=== PATIENT | female | born 1995 | race Caucasian/White ===

== ENCOUNTER 2016-04-17 20:30 | Emergency (ER) | payer OTHER ==
--- NOTE | 2016-04-17 22:43 | DIAGNOSTIC IMAGING REPORT ---
PROCEDURE: CT ABD/PELVIS WITH CONTRAST INDICATION: ABDOMINAL PAIN TECHNIQUE: of Isovue 300 were injected intravenously and axial images were obtained of the entire abdomen and pelvis with sagittal and coronal reformations. COMPARISON: None. FINDINGS: ABDOMEN: Gallbladder, liver, pancreas, kidneys, and aorta are normal. Mild chronic splenomegaly (14 cm). Bowel pattern is normal, including appendix. PELVIS: Uterus and adnexal structures are normal. No evidence of free fluid. IMPRESSION: 1. Mild splenomegaly (14 cm). (Chronic). 2. Otherwise negative CT abdomen and pelvis. 3. Findings discussed with Dr. Han. All CT scans at this facility use dose modulation, iterative reconstruction, and/or weight-based dosing when appropriate to reduce radiation dose to as low as reasonably achievable.
--- NOTE | 2016-04-17 22:55 | ED NURSING NOTES ---
Clinical Report - Nurses [facility] [address] [place] [address] 04/17/2016 20:32 Patient: ANDREWS ALMONTE TRIAGE Triage time 21:03. Acuity: LEVEL 3. Chief Complaint: ABDOMINAL PAIN and NAUSEA. Alert. No acute distress. --21: Loree Gr R.N. 21:02 04/17/16. BP: 133/50. HR: 102. RR: 16 (regular and unlabored). O2 saturation: 98% on room air. Temp: 98.2 F (oral). Doshi-Bae pain scale: 4/10. --21: Loree Gr R.N. Weight: 102.5 kg stated. Height/Length: 66 inches Per Patient. BMI: 36.5. Growth Chart Percentile: Weight: 98.8%. Height/Length: 74.7%. --21: Loree Gr R.N. Medications Implanon. --21: Loree Gr R.N. Allergies Naproxen. (sob) --21: Loree Gr R.N. History Arrived by private vehicle. Historian: patient. Unaccompanied. Primary physician (Frantz ([facility])). ( was seen at the [facility], told to come to ED for worsening pain.). This started today. Onset. (at about 1600). 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 PAST MEDICAL HX: Immunizations: status is unknown. Last normal menstrual period unknown. Uses depo implants. SOCIAL HX: Heavy tobacco smoker (cigarette)- less than 1 pack per day. Occasional alcohol use. History of drug use: marijuana. NUTRITIONAL RISK ASSESSMENT: The nutritional risk assessment revealed no deficiencies. FUNCTIONAL ASSESSMENT: Functional assessment: no impairments noted. --21: Loree Gr R.N. PROBLEMS: Ureterolithiasis. Asthma. --21: Loree Gr R.N. ADDITIONAL SURGERIES: Lithotripsy. --21:06 Loree Gr R.N. Interventions ID band on patient. To treatment room. --21:08 Loree Gr R.N. PHYSICAL ASSESSMENT Ambulatory to room. Patient gowned. GENERAL / NEURO / PSYCH: Alert. Oriented X 4. Appears in no acute distress. HEENT: Mucous membranes are pink. RESPIRATORY: Respirations not labored. CVS: Capillary refill less than 2 seconds. SKIN: Skin is warm and dry. --21:09 Loree Gr R.N. NURSING PROGRESS NOTES Head of bed elevated. Two patient identifiers checked. Call light placed in reach. Side rails up x 1. Bed placed in lowest position. Brakes of bed on. Patient ready for evaluation- chart flagged. --21:09 Loree Gr R.N. Patient ID band checked for patient name and birthdate: patient confirmed. Instructions provided to collect clean catch urine and patient verbalized understanding. Clean catch urine collected with return of yellow-colored cloudy urine; sample sent to lab. Specimen labeled in the presence of the patient. --21:09 Loree Gr R.N. The initial plan of care for this patient has been created This plan of care was discussed with the patient. --21:10 Loree Gr R.N. 21:15 04/17/2016 Site #1 started via IV in the right antecubital space with an 20g angiocath, with aseptic technique and good blood return; one attempt. Blood drawn: rainbow set. Labeled in the presence of the patient and sent to the lab. Saline lock flushed with 10 mL saline. --21:22 Loree Gr R.N. 21:15 04/17/2016 Started bag #1 1000 mL IV Fluids IV NS (Saline); at 1000 mL/hr over 1 hour(s) via site #1 via IV pump. Allergies verified and confirmed 5 rights. IV patency established. IV site checked: no pain, redness, or swelling. IV flushed thoroughly pre- and post-medication administration. --21:55 Madison Wu R.N. 21:17 04/17/2016 Zofran (Ondansetron HCl) IVP 4 mg given over 1 minute(s) via site #1. Allergies verified and confirmed 5 rights. IV patency established. IV site checked: no pain, redness, or swelling. IV flushed thoroughly pre- and post-medication administration. IVP given by RN. --21:22 Loree Gr R.N. Patient returned from CT by stretcher with tech. --21:58 Madison Wu R.N. 22:45 04/17/16. BP: 113/65. HR: 103. RR: 20. O2 saturation: 97% on room air. Pain level now: 07/22. --22:45 Nena Sultana ( Discussed plan of care with patient. Patient resting and has no complaints at this time.). --22:45 Nena Sultana 22:53 04/17/2016 Dilaudid (HYDROmorphone HCl PF) IVP 0.5 mg given over 1 minute(s) via site #1. Allergies verified, confirmed 5 rights and sedative warning given to the patient. IV patency established. IV site checked: no pain, redness, or swelling. IV flushed thoroughly pre- and post-medication administration. IVP given by RN. --22:53 Nena Sultana 23:15 04/17/2016 IV Fluids IV NS Discontinued: bag #1 completed. Total amount infused: 1000 mL. IV patency established. IV site checked: no pain, redness, or swelling. IV flushed thoroughly. --23:48 Nena Sultana. DISPOSITION / DISCHARGE 22:55 04/17/16. BP: 113/65. HR: 109. RR: 20. O2 saturation: 97% on room air. Pain level now: 05/24. --22:55 Nena Sultana 22:55 04/17/16. Condition at departure: stable. --22:55 Nena Sultana 23:40 04/17/16. BP: 108/51. HR: 100. RR: 20. O2 saturation: 99% on room air. Temp: 98.3 F (oral). Pain level now: 07/22. --23:48 Nena Sultana Condition at departure: stable. No learning barriers present. Discharge instructions provided and reviewed with the patient. Reviewed medication(s) side effects, precautions, dosing and course information. Prescription(s) given to the patient. Patient verbalized understanding. Written instructions provided in [place]. ( Mandatory follow up with PCP in 12-24 hours. Avoid alcohol and fatty or greasy foods. Hydrate and return to ER if symptoms worsen.). The patient was discharged by the physician. She was discharged home and accompanied by plant machinist. She left the Emergency Department ambulatory and via private vehicle. Wine Steward/Stewardess driving. --23:48 Nena Sultana 23:38 04/17/2016 Site #1 removed upon discharge. Catheter intact. Bandaid applied. --23:48 Nena Sultana. Locked/Released at 04/17/2016 23:49 by Nena Sultana,
--- NOTE | 2016-04-17 22:55 | ED NURSING NOTES ---
Clinical Report - Nurses [facility] [address] [place] [address] 04/17/2016 20:32 Patient: ANDREWS ALMONTE TRIAGE Triage time 21:03. Acuity: LEVEL 3. Chief Complaint: ABDOMINAL PAIN and NAUSEA. Alert. No acute distress. --21: Loree Gr R.N. 21:02 04/17/16. BP: 133/50. HR: 102. RR: 16 (regular and unlabored). O2 saturation: 98% on room air. Temp: 98.2 F (oral). Doshi-Bae pain scale: 4/10. --21: Loree Gr R.N. Weight: 102.5 kg stated. Height/Length: 66 inches Per Patient. BMI: 36.5. Growth Chart Percentile: Weight: 98.8%. Height/Length: 74.7%. --21: Loree Gr R.N. Medications Implanon. --21: Loree Gr R.N. Allergies Naproxen. (sob) --21: Loree Gr R.N. History Arrived by private vehicle. Historian: patient. Unaccompanied. Primary physician (Frantz ([facility])). ( was seen at the [facility], told to come to ED for worsening pain.). This started today. Onset. (at about 1600). 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 PAST MEDICAL HX: Immunizations: status is unknown. Last normal menstrual period unknown. Uses depo implants. SOCIAL HX: Heavy tobacco smoker (cigarette)- less than 1 pack per day. Occasional alcohol use. History of drug use: marijuana. NUTRITIONAL RISK ASSESSMENT: The nutritional risk assessment revealed no deficiencies. FUNCTIONAL ASSESSMENT: Functional assessment: no impairments noted. --21: Loree Gr R.N. PROBLEMS: Ureterolithiasis. Asthma. --21: Loree Gr R.N. ADDITIONAL SURGERIES: Lithotripsy. --21:06 Loree Gr R.N. Interventions ID band on patient. To treatment room. --21:08 Loree Gr R.N. PHYSICAL ASSESSMENT Ambulatory to room. Patient gowned. GENERAL / NEURO / PSYCH: Alert. Oriented X 4. Appears in no acute distress. HEENT: Mucous membranes are pink. RESPIRATORY: Respirations not labored. CVS: Capillary refill less than 2 seconds. SKIN: Skin is warm and dry. --21:09 Loree Gr R.N. NURSING PROGRESS NOTES Head of bed elevated. Two patient identifiers checked. Call light placed in reach. Side rails up x 1. Bed placed in lowest position. Brakes of bed on. Patient ready for evaluation- chart flagged. --21:09 Loree Gr R.N. Patient ID band checked for patient name and birthdate: patient confirmed. Instructions provided to collect clean catch urine and patient verbalized understanding. Clean catch urine collected with return of yellow-colored cloudy urine; sample sent to lab. Specimen labeled in the presence of the patient. --21:09 Loree Gr R.N. The initial plan of care for this patient has been created This plan of care was discussed with the patient. --21:10 Loree Gr R.N. 21:15 04/17/2016 Site #1 started via IV in the right antecubital space with an 20g angiocath, with aseptic technique and good blood return; one attempt. Blood drawn: rainbow set. Labeled in the presence of the patient and sent to the lab. Saline lock flushed with 10 mL saline. --21:22 Loree Gr R.N. 21:15 04/17/2016 Started bag #1 1000 mL IV Fluids IV NS (Saline); at 1000 mL/hr over 1 hour(s) via site #1 via IV pump. Allergies verified and confirmed 5 rights. IV patency established. IV site checked: no pain, redness, or swelling. IV flushed thoroughly pre- and post-medication administration. --21:55 Madison Wu R.N. 21:17 04/17/2016 Zofran (Ondansetron HCl) IVP 4 mg given over 1 minute(s) via site #1. Allergies verified and confirmed 5 rights. IV patency established. IV site checked: no pain, redness, or swelling. IV flushed thoroughly pre- and post-medication administration. IVP given by RN. --21:22 Loree Gr R.N. Patient returned from CT by stretcher with tech. --21:58 Madison Wu R.N. 22:45 04/17/16. BP: 113/65. HR: 103. RR: 20. O2 saturation: 97% on room air. Pain level now: 07/22. --22:45 Nena Sultana ( Discussed plan of care with patient. Patient resting and has no complaints at this time.). --22:45 Nena Sultana 22:53 04/17/2016 Dilaudid (HYDROmorphone HCl PF) IVP 0.5 mg given over 1 minute(s) via site #1. Allergies verified, confirmed 5 rights and sedative warning given to the patient. IV patency established. IV site checked: no pain, redness, or swelling. IV flushed thoroughly pre- and post-medication administration. IVP given by RN. --22:53 Nena Sultana 23:15 04/17/2016 IV Fluids IV NS Discontinued: bag #1 completed. Total amount infused: 1000 mL. IV patency established. IV site checked: no pain, redness, or swelling. IV flushed thoroughly. --23:48 Nena Sultana. DISPOSITION / DISCHARGE 22:55 04/17/16. BP: 113/65. HR: 109. RR: 20. O2 saturation: 97% on room air. Pain level now: 05/24. --22:55 Nena Sultana 22:55 04/17/16. Condition at departure: stable. --22:55 Nena Sultana 23:40 04/17/16. BP: 108/51. HR: 100. RR: 20. O2 saturation: 99% on room air. Temp: 98.3 F (oral). Pain level now: 07/22. --23:48 Nena Sultana Condition at departure: stable. No learning barriers present. Discharge instructions provided and reviewed with the patient. Reviewed medication(s) side effects, precautions, dosing and course information. Prescription(s) given to the patient. Patient verbalized understanding. Written instructions provided in Niue[place]. ( Mandatory follow up with PCP in 12-24 hours. Avoid alcohol and fatty or greasy foods. Hydrate and return to ER if symptoms worsen.). The patient was discharged by the physician. She was discharged home and accompanied by technologist development. She left the Emergency Department ambulatory and via private vehicle. Petroleum Inspector driving. --23:48 Nena Sultana 23:38 04/17/2016 Site #1 removed upon discharge. Catheter intact. Bandaid applied. --23:48 Nena Sultana. Locked/Released at 04/17/2016 23:49 by Nena Sultana,
--- NOTE | 2016-04-17 22:55 | ED CLINICAL REPORT ---
Clinical Report - Physicians/Mid Levels [facility] [address] [place] [address] 04/17/2016 20:32 Patient: ANDREWS ALMONTE Time Seen: 21:02. Arrived- By private vehicle. Historian- patient. HISTORY OF PRESENT ILLNESS Chief Complaint: ABDOMINAL PAIN. At its maximum, severity described as moderate. When seen in the E.D., severity described as moderate. Modifying factors- worsened by movement. Relieved by rest. This started today about 1600 and is still present. It was gradual in onset and has been waxing/waning. It is described as "pain". No radiation. It is described as located in the right lower quadrant and right pelvis. The patient has had nausea. No vomiting or diarrhea. Similar symptoms previously: Recent medical care: The patient was seen recently by a health care provider (was seen at the [facility], told to come to ED for worsening pain). REVIEW OF SYSTEMS 1. Para 1. Uses depo implants. No constipation, black stools, hematemesis, difficulty with urination or pain with urination. No urinary frequency, fever, sore throat, chest pain or difficulty breathing. The patient has had mild lower back pain. All systems otherwise negative, except as recorded above. PAST HISTORY Primary physician: Dr Landry ([facility]) Problems: Ureterolithiasis. Vomiting. Chemical Exposure, Skin. Back Pain. Asthma. SURGERIES: Lithotripsy. SOCIAL HISTORY Smoker- current status unknown. Occasional alcohol use. History of drug use: marijuana. ADDITIONAL NOTES The nursing notes have been reviewed. PHYSICAL EXAM Vital Signs: 04/17/2016 21:02 BP: 133/50. HR: 102. RR: 16. O2 saturation: 98%. Temp: 98.2 F. Doshi-Bae pain scale: 4/10. Appearance: Alert. Oriented X3. No acute distress. Eyes: Eyes normal inspection. No scleral icterus or pale conjunctivae. ENT: Pharynx normal. No pharyngeal erythema or tonsillar exudate. The mucous membranes are not dry. Neck: Normal inspection. Neck supple. No JVD, carotid bruit or meningeal signs. CVS: Heart sounds normal. Pulses normal. Respiratory: No respiratory distress. Breath sounds normal. No rales, rhonchi or wheezes. Abdomen: Soft. Mild tenderness in the right lower quadrant and lower abdomen. No organomegaly. No mass. No rebound tenderness or guarding. Back: Normal inspection. No CVA tenderness. Skin: No cyanosis. Skin warm and dry. No pallor. Normal skin color. No rash. Normal skin turgor. No diaphoresis. Extremities: Extremities exhibit normal ROM. No lower extremity edema. No calf tenderness. No lower extremity edema. Neuro: Oriented X 3. No motor deficit. LABS, X-RAYS, AND EKG Abdominal CT: Appendix normal. FINDINGS: ABDOMEN: Gallbladder, liver, pancreas, kidneys, and aorta are normal. Mild chronic splenomegaly (14 cm). Bowel pattern is normal, including appendix. PELVIS: Uterus and adnexal structures are normal. No evidence of free fluid. IMPRESSION: 1. Mild splenomegaly (14 cm). (Chronic). 2. Otherwise negative CT abdomen and pelvis. Study type: abdomen and pelvis. The study was independently viewed by me, interpreted by the radiologist and discussed with the radiologist. Laboratory Tests: UA-Culture if indicated: (FRANK: 04/17/2016 21:15) ( MsgRcvd 04/17/2016 21:43) Final results Test Result Flag Units (Reference) URINE COLOR YELLOW URINE APPEARANCE CLOUDY URINE GLUCOSE NEGATIVE (NEGATIVE) URINE BILIRUBIN NEGATIVE (NEGATIVE) URINE KETONE NEGATIVE (NEGATIVE) URINE SPECIFIC GRAVITY 1.025 (1.010-1.030) URINE PH 7.0 (5.0-8.0) URINE PROTEIN NEGATIVE (NEGATIVE) URINE UROBILINOGEN 0.2 EU/dL (0.2-1.0) URINE NITRITE NEGATIVE (NEGATIVE) URINE BLOOD NEGATIVE (NEGATIVE) URINE LEUK ESTERASE NEGATIVE (NEGATIVE) URINE RBC NONE SEEN rbc/hpf (0-1) URINE WBC 1-3 wbc/hpf (0-1) URINE EPITHELIAL CELLS 1-3 EPI/hpf (0-5) URINE BACTERIA TRACE (<1+) (NONE SEEN) URINE COMMENT CULT NOT INDICATED 2+ AMORPHOUSURINE CULTURES ARE SET-UP BASED ON THE FOLLOWING CRITERIA:POSITIVE NITRITEPOSITIVE LEUKOCYTE ESTERASEGREATER THAN 10 WHITE BLOOD CELLSMODERATE (2+) OR GREATER BACTERIA Urine: (FRANK: 04/17/2016 21:15) ( [facility] 04/17/2016 21:29) Final results Test Result Flag Units (Reference) URINE NEGATIVE CBC w Diff: (FRANK: 04/17/2016 21:17) ( [facility] 04/17/2016 21:31) Final results Test Result Flag Units (Reference) WHITE BLOOD COUNT 13.1 H K/uL (4.5-11.5) RED BLOOD COUNT 5.08 M/uL (4.00-5.20) HEMOGLOBIN 14.1 gm/dL (12.0-16.0) HEMATOCRIT 43.1 % (36.0-46.0) MEAN CELL VOLUME 85 fL (80-100) MEAN CORPUSCULAR HGB 28 pg (26-34) MEAN CORPUSCULAR HGB CONC 33 g/dL (31-37) RED CELL DISTRIBUTION WIDTH 13.3 % (11.6-14.8) PLATELET COUNT 293 K/uL (150-400) NEUTROPHIL % 64.8 % (50-75) LYMPH % 24.8 L % (25-40) MONO % 8.5 % (3-14) EOSINOPHIL % 1.3 % (0-4) BASOPHIL % 0.6 % (0-2) PT with INR: (FRANK: 04/17/2016 21:17) ( [facility] 04/17/2016 21:38) Final results Test Result Flag Units (Reference) INR 1.0 (0.8-1.2) Low Intensity Therapy: INR 1.5-2.0 PT range 18.5-23.1Mod.Intensity Therapy: INR 2.0-3.0 PT range 23.1-31.5High Intensity Therapy: INR 2.5-3.5 PT range 27.4-35.5High Intensity Therapy 2: INR 3.0-4.0 PT range 31.5-39.3 Urine Drug Screen: (FRANK: 04/17/2016 21:15) ( [facility] 04/17/2016 21:50) Final results Test Result Flag Units (Reference) AMPHETAMINE/METHAMPHETAMINE NEGATIVE (NEGATIVE) BARBITURATE NEGATIVE (NEGATIVE) BENZODIAZEPINE NEGATIVE (NEGATIVE) CANNABINOID NEGATIVE (NEGATIVE) COCAINE NEGATIVE (NEGATIVE) ECSTASY NEGATIVE (NEGATIVE) METHADONE NEGATIVE (NEGATIVE) OPIATE NEGATIVE (NEGATIVE) The urine drug screen is a qualitative screening test fordrug overdose and abuse. All screen results should beconsidered as presumptive.Drugs screened for are as follows:BenzodiazepinesCocaineAmphetamines/MetamphetaminesTHC (Tetrahydrocannabinol)OpiatesBarbituratesEcstasyMethadonePositive results are unconfirmed. For confirmation, notifythe lab for the specimen to be sent to the reference lab.All confirmations must be performed by a differentmethodology.The ingestion of natural herbal and plant productscontaining Ephedra/Ephedra metabolites can produce in urineone or more substances capable of cross reacting withamphetamine/methamphetamine immunoassays. These testsprovide a preliminary result only. A more specificalternative chemical method must be used to obtain aconfirmed analytical result. CMP: (FRANK: 04/17/2016 21:17) ( MsgRcvd 04/17/2016 21:41) Final results Test Result Flag Units (Reference) GLUCOSE 88 mg/dL (70-110) BUN 16 mg/dL (7-18) CREATININE 0.8 mg/dL (0.6-1.3) Estimated GFR >60 mL/min Estimated GFR- >60 mL/min Note: Persistent reduction over 3 months in eGFR<60 mL/min/1.73 m2 defines CKD. Patients with eGFR values>=60 mL/min/1.73 m2 may also have CKD if evidence ofpersistent proteinuria. Additional information may be foundat www.kidney.org. SODIUM 142 mmol/L (136-145) POTASSIUM 3.8 mmol/L (3.5-5.1) CHLORIDE 104 mmol/L (98-107) CARBON DIOXIDE 29 mmol/L (21-32) CALCIUM 9.2 mg/dL (8.5-10.1) TOTAL PROTEIN 7.7 g/dL (6.4-8.2) ALBUMIN 4.1 g/dL (3.3-5.0) BILIRUBIN, TOTAL 0.3 mg/dL (0.0-1.0) ALKALINE PHOSPHATASE 92 U/L (46-116) AST (SGOT) 14 L U/L (15-37) ALT (SGPT) 41 U/L (12-78) LIPASE 122 U/L (73-393) AMYLASE 45 U/L (25-115) . Pulse Oximetry: 04/17/2016 21:02 O2 saturation: 98%. (FIO2 - room air). Interpretation: normal. PROGRESS AND PROCEDURES Course of Care: Normal Saline 1 liter IVPB given. Zofran 4 mg IVP given. Dilaudid 0.5 mg IVP given. Patient is stable. Physical exam findings are improved. Symptoms much better. Patient/family counseled. Old ED records reviewed. Disposition: Discharged. Condition: stable and improved. CLINICAL IMPRESSION Acute right lower quadrant abdominal pain of unknown cause. Mild splenomegally of unclear significance Consider inflammatory bowel disease. INSTRUCTIONS Rest. Do not work tomorrow or go to school tomorrow. Drink plenty of fluids. No alcohol. Avoid alcohol. Avoid fatty, fried/greasy, lactose-containing (such as milk, cheese and ice cream), salty and spicy foods. Do not smoke. Seek medical help to quit smoking. (MANDATORY RECHECK IN 12 - 24 HOURS UNLESS BETTER). Warnings: Further evaluation is necessary in order to recheck abnormal lab, obtain test results, conduct further tests and assess the possibility of serious illness (You may need a colonoscopy or other procedure if not improving). It is very important to follow up with a physician. SEDATIVE MEDICATION: You were given sedative medication during your visit. Do not drive or operate dangerous machinery. CONTROLLED SUBSTANCE WARNINGS. GENERAL WARNINGS: Return or contact your physician immediately if your condition worsens or changes unexpectedly, if not improving as expected, or if other problems arise. Your Current Medications: CONTINUE TAKING THE FOLLOWING MEDICATIONS: Implanon*. Prescription Medications: Hydrocodone/APAP 5mg / 325mg: take 1-2 orally every 8 hours as needed for pain. Dispense ten (10). No refill. Zofran (orally disintegrating tablets) 4 mg: take 1 orally every 8 hours as needed for nausea and vomiting. Dispense five (5). No refill. Substitution is permissible. OTC Medications: Take acetaminophen (Tylenol, Datril, etc.) according to label instructions. Available over the counter. Follow-up: Follow up with your doctor Primary physician: Dr Landry ([facility]) tomorrow. Follow up with a safety professional- as recommended by your primary care physician. Understanding of the discharge instructions not verbalized by parent. Follow-up with: Rasheed Mora MD, General Surgeon, , [facility], [address] [place] [address] Follow up in about two days. (Electronically signed by Casey Han DO 04/18/2016 15:56)
--- NOTE | 2016-04-17 22:55 | ED ORDER SUMMARY ---
..... Patient: ANDREWS ALMONTE OrderSheet [facility] VisitID: [id number] [address] [place] [address] 20y, F Registration Date/Time: 04/17/2016 ORDER SHEET Weight: 102.5 kg (stated) Allergies: Naproxen GENERAL ORDERS: CBC w Diff Urgent (21:04/17/2016 PHutchinson DO) (Ack 21:28 NHouse ER Tech1) (21:28 NHouse ER Tech1) CMP Urgent (21:04/17/2016 PHutchinson DO) (Ack 21:28 NHouse ER Tech1) (21:28 NHouse ER Tech1) UA-Culture if indicated Urgent (21:04/17/2016 PHutchinson DO) (Ack 21:28 NHouse ER Tech1) (21:28 NHouse ER Tech1) Amylase Urgent (21:04/17/2016 PHutchinson DO) (Ack 21:28 NHouse ER Tech1) (21:28 NHouse ER Tech1) Lipase Urgent (21:04/17/2016 PHutchinson DO) (Ack 21:28 NHouse ER Tech1) (21:28 NHouse ER Tech1) Urine Drug Screen Urgent (21:04/17/2016 PHutchinson DO) (Ack 21:28 NHouse ER Tech1) (21:28 NHouse ER Tech1) Urine Urgent (21:04/17/2016 PHutchinson DO) (Ack 21:28 NHouse ER Tech1) (21:28 NHouse ER Tech1) PT with INR Urgent (21:04/17/2016 PHutchinson DO) (Ack 21:28 NHouse ER Tech1) (21:28 NHouse ER Tech1) NPO (:04/17/2016 PHutchinson DO) (21:22 RCollier R.N.) CT Abd/Pel w Cont (No) (N/A) Urgent (21:12 04/17/2016 PHutchinson DO) (Ack 21:28 NHouse ER Tech1) (21:55 SRoberteodoro R.N.) MEDICATION ORDERS: IV FLUIDS: IV NS : initial bolus 1000 mL (1000 mL/hr), then 500 mL/hr for X2 (NOW) (21:08 04/17/2016 [facility]) (Ack 21:10 RCollier R.N.) (21:55 SRoberts R.N.) Zofran IV 4 mg (NOW) (21:09 04/17/2016 [facility]) (Ack 21:10 RCollier R.N.) (21:22 RCollier R.N.) Dilaudid IV 0.5 mg (HIGH ALERT MEDICATION, NOW) (22:48 04/17/2016 [facility]) (Ack 22:49 HSoule) (22:53 HSoule) ORDER SHEET NOTES: [Electronically signed by Nena Sultana (23:49 04/17/2016)] [Electronically signed by Casey Han DO (15:56 04/18/2016)] [Electronically locked/signed by Nena Sultana (23:49 04/17/2016)]
--- NOTE | 2016-04-17 22:55 | ED ORDER SUMMARY ---
..... Patient: ANDREWS ALMONTE OrderSheet [facility] VisitID: [id number] [address] [place] [address] 20y, F Registration Date/Time: 04/17/2016 ORDER SHEET Weight: 102.5 kg (stated) Allergies: Naproxen GENERAL ORDERS: CBC w Diff Urgent (21:04/17/2016 PHutchinson DO) (Ack 21:28 NHouse ER Tech1) (21:28 NHouse ER Tech1) CMP Urgent (21:04/17/2016 PHutchinson DO) (Ack 21:28 NHouse ER Tech1) (21:28 NHouse ER Tech1) UA-Culture if indicated Urgent (21:04/17/2016 PHutchinson DO) (Ack 21:28 NHouse ER Tech1) (21:28 NHouse ER Tech1) Amylase Urgent (21:04/17/2016 PHutchinson DO) (Ack 21:28 NHouse ER Tech1) (21:28 NHouse ER Tech1) Lipase Urgent (21:04/17/2016 PHutchinson DO) (Ack 21:28 NHouse ER Tech1) (21:28 NHouse ER Tech1) Urine Drug Screen Urgent (21:04/17/2016 PHutchinson DO) (Ack 21:28 NHouse ER Tech1) (21:28 NHouse ER Tech1) Urine Urgent (21:04/17/2016 PHutchinson DO) (Ack 21:28 NHouse ER Tech1) (21:28 NHouse ER Tech1) PT with INR Urgent (21:04/17/2016 PHutchinson DO) (Ack 21:28 NHouse ER Tech1) (21:28 NHouse ER Tech1) NPO (:04/17/2016 PHutchinson DO) (21:22 RCollier R.N.) CT Abd/Pel w Cont (No) (N/A) Urgent (21:12 04/17/2016 PHutchinson DO) (Ack 21:28 NHouse ER Tech1) (21:55 SRoberteodoro R.N.) MEDICATION ORDERS: IV FLUIDS: IV NS : initial bolus 1000 mL (1000 mL/hr), then 500 mL/hr for X2 (NOW) (21:08 04/17/2016 [facility]) (Ack 21:10 RCollier R.N.) (21:55 SRoberts R.N.) Zofran IV 4 mg (NOW) (21:09 04/17/2016 [facility]) (Ack 21:10 RCollier R.N.) (21:22 RCollier R.N.) Dilaudid IV 0.5 mg (HIGH ALERT MEDICATION, NOW) (22:48 04/17/2016 [facility]) (Ack 22:49 HSoule) (22:53 HSoule) ORDER SHEET NOTES: [Electronically signed by Nena Sultana (23:49 04/17/2016)] [Electronically signed by Casey Han DO (15:56 04/18/2016)] [Electronically locked/signed by Nena Sultana (23:49 04/17/2016)]
--- NOTE | 2016-04-18 15:56 | ED DISCHARGE INSTRUCTIONS ---
Patient: ANDREWS ALMONTE General Instructions [facility] VisitID: [id number] [place] [address] 20y, F Registration Date/Time: 04/17/2016 Acute right lower quadrant abdominal pain of unknown cause. Mild splenomegally of unclear significance Consider inflammatory bowel disease. INSTRUCTIONS Rest. Do not work tomorrow or go to school tomorrow. Drink plenty of fluids. No alcohol. Avoid alcohol. Avoid fatty, fried/greasy, lactose-containing (such as milk, cheese and ice cream), salty and spicy foods. Do not smoke. Seek medical help to quit smoking. (MANDATORY RECHECK IN 12 - 24 HOURS UNLESS BETTER). Warnings: Further evaluation is necessary in order to recheck abnormal lab, obtain test results, conduct further tests and assess the possibility of serious illness (You may need a colonoscopy or other procedure if not improving). It is very important to follow up with a physician. SEDATIVE MEDICATION: You were given sedative medication during your visit. Do not drive or operate dangerous machinery. CONTROLLED SUBSTANCE WARNINGS. GENERAL WARNINGS: Return or contact your physician immediately if your condition worsens or changes unexpectedly, if not improving as expected, or if other problems arise. Your Current Medications: CONTINUE TAKING THE FOLLOWING MEDICATIONS: Implanon*. Prescription Medications: Hydrocodone/APAP 5mg / 325mg: take 1-2 orally every 8 hours as needed for pain. Dispense ten (10). No refill. Zofran (orally disintegrating tablets) 4 mg: take 1 orally every 8 hours as needed for nausea and vomiting. Dispense five (5). No refill. Substitution is permissible. OTC Medications: Take acetaminophen (Tylenol, Datril, etc.) according to label instructions. Available over the counter. Follow-up: Follow up with your doctor Primary physician: Dr Landry ([facility]) tomorrow. Follow up with a alliances consultant- as recommended by your primary care physician. Understanding of the discharge instructions not verbalized by parent. Follow-up with: Rasheed Mora MD, General Surgeon, , [facility], [address] [place] [address] Follow up in about two days. ADDITIONAL INFORMATION Abdominal Pain, Unknown Cause (Female) The exact cause of your abdominal (stomach) pain is not certain. This does not mean that this is something to worry about, or the right tests were not done. Everyone likes to know the exact cause of the problem, but sometimes with abdominal pain, there is no clear-cut cause, and this could be a good thing. The good news is that your symptoms can be treated, and you will feel better. Your condition does not seem serious now; however, sometimes the signs of a serious problem may take more time to appear. For this reason,it is important for you to watch for any new symptoms, problems,or worsening of your condition. Over the next few days, the abdominal pain may come and go, or be continuous. Other common symptoms can include nausea and vomiting. Sometimes it can be difficult to tell if you feel nauseous, you may just feel bad and not associate that feeling with nausea. Constipation, diarrhea, and a fever may go along with the pain. The pain may continue even if treated correctly over the following days. Depending on how things go, sometimes the cause can become clear and may require further or different treatment. Additional evaluations, medications, or tests may be needed. Home care Your health care provider may prescribe medications for pain, symptoms, or an infection. Follow the health care provider's instructions for taking these medications. General care Rest until your next exam. No strenuous activities. Try to find positions that ease discomfort. A small pillow placed on the abdomen may help relieve pain. Something warm on your abdomen (such as a heating pad) may help, but be careful not to burn yourself. Diet Do not force yourself to eat, especially if having cramps, vomiting, or diarrhea. Water is important so you do not get dehydrated. Soup may also be good. Sports drinks may also help, especially if they are not too acidic. Make sure you don't drink sugary drinks as this can make things worse. Take liquids in small amounts. Do not guzzle them. Caffeine sometimes makes the pain and cramping worse. Avoid dairy products if you have vomiting or diarrhea. Don't eat large amounts at a time. Wait a few minutes between bites. Eat a diet low in fiber (called a low-residue diet). Foods allowed include refined breads, white rice, fruit and vegetable juices without pulp, tender meats. These foods will pass more easily through the intestine. Avoid whole-grain foods, whole fruits and vegetables, meats, seeds and nuts, fried or fatty foods, dairy, alcohol and spicy foods until your symptoms go away. Follow-up care Follow up with your health care provider as instructed, or if your pain does not begin to improve in the next 24 hours. When to seek medical care Seek prompt medical care if any of the following occur: Pain gets worse or moves to the right lower abdomen New or worsening vomiting or diarrhea Swelling of the abdomen Unable to pass stool for more than three days Fever of 100.4F (38C) or higher, or as directed by your healthcare provider. Blood in vomit or bowel movements (dark red or black color) Jaundice (yellow color of eyes and skin) Weakness, dizziness Chest, arm, back, neck or jaw pain Unexpected vaginal bleeding or missed period Call 911 Call emergency services if any of the following occur: Trouble breathing Confusion Fainting or loss of consciousness Rapid heart rate Seizure Abdominal Pain,Possible Appendicitis [Repeat Exam, Female] Based on your visit today, the exact cause of your abdominal (stomach) pain is not certain. However, you do have some of the early signs of APPENDICITIS. Early in an appendix infection the symptoms can be similar to a simple "stomach ache" or "stomach flu". Therefore, the diagnosis can be hard to make. Since an appendix infection is a serious condition, it is important to know if this is the cause of your symptoms. WAITING for more time to pass and repeating the exam is the best way to find out whether you have appendicitis. Within the next 12-24 hours the cause of your stomach pain should become clear. It is important for you to watch for any new symptoms or worsening of your condition. (See below). Home Care: Rest until your next exam. No strenuous activities. Eat a diet low in fiber (called a low-residue diet). Foods allowed include refined breads, white rice, fruit and vegetable juices without pulp, tender meats. These foods will pass more easily through the intestine. Avoid whole-grain foods, whole fruits and vegetables, meats, seeds and nuts, fried or fatty foods, dairy, alcohol and spicy foods until your symptoms go away. In some cases, you may be asked not to eat or drink anything until you are re-examined. Return for another exam exactly as directed. Follow Up with your doctor or this facility as directed. Get Prompt Medical Attention if any of the following occur: Pain gets worse or moves to the right lower abdomen New or worsening vomiting or diarrhea Swelling of the abdomen Unable to pass stool for more than three days Fever of 100.4F (38C) or higher, or as directed by your healthcare provider Blood in vomit or bowel movements (dark red or black color) Weakness, dizziness or fainting Unexpected vaginal bleeding How To Quit Smoking Smoking is one of the hardest habits to break. About half of all those who have ever smoked have been able to quit, and most of those (about 70%) who still smoke want to quit. Here are some of the best ways to stop smoking. Keep Trying: It takes most smokers about 8 tries before they are finally able to fully quit. So, the more often you try and fail, the better your chance of quitting the next time! So, don't give up! Go Cold Machias: Most ex-smokers quit cold turkey. Trying to cut back gradually doesn't seem to work as well, perhaps because it continues the smoking habit. Also, it is possible to fool yourself by inhaling more while smoking fewer cigarettes. This results in the same amount of nicotine in your body! Get Support: Support programs can make an important difference, especially for the heavy smoker. These groups offer lectures, methods to change your behavior and peer support. Call the free national Quitline for more information. 274-LRQP-AEE (849-963-6044). Low-cost or free programs are offered by many hospitals, local chapters of the [place] [employer] (579-053-5971) and the [place] [employer] (682-897-3621). Support at home is important too. Non-smokers can help by offering praise and encouragement. If the smoker fails to quit, encourage them to try again! Iuyv-Lus-Sllqlls Medicines: For those who can't quit on their own, Nicotine Replacement Therapy (NRT) may make quitting much easier. Certain aids such as the nicotine patch, gum and lozenge are available without a prescription. However, it is best to use these under the guidance of your doctor. The skin patch provides a steady supply of nicotine to the body. Nicotine gum and lozenge gives temporary bursts of low levels of nicotine. Both methods take the edge off the craving for cigarettes. WARNING: If you feel symptoms of nicotine overdose, such as nausea, vomiting, dizziness, weakness, or fast heartbeat, stop using these and see your doctor. Prescription Medicines: After evaluating your smoking patterns and prior attempts at quitting, your doctor may offer a prescription medicine such as bupropion (Zyban, Wellbutrin), varenicline (Chantix, Champix), a niocotine inhaler or nasal spray. Each has its unique advantage and side effects which your doctor can review with you. Health Benefits Of Quitting: The benefits of quitting start right away and keep improving the longer you go without smokin minutes: blood pressure and pulse return to normal 8 hours: oxygen levels return to normal 2 days: ability to smell and taste begins to improve as damaged nerves start to regrow 2-3 weeks: circulation and lung function improves 1-9 months: decreased cough, congestion and shortness of breath; less tired 1 year: risk of heart attack decreases by half 5 years: risk of lung cancer decreases by half; risk of stroke becomes the same as a non-smoker For information about how to quit smoking, visit the following links: [employer] [place] , Clearing the Air, Quit Smoking Today - an online booklet. http://www.smokefree.gov/pubs/clearing_the_air.pdf Smokefree.gov http://smokefree.gov/ QuitNet http://www.quitnet.com/ Hydrocodone Bitartrate, Acetaminophen Oral tablet What is this medicine? ACETAMINOPHEN; HYDROCODONE (a set a KARYNA bryce fen; en droe KOE done) is a pain reliever. It is used to treat mild to moderate pain. How should I use this medicine? Take this medicine by mouth. Swallow it with a full glass of water. Follow the directions on the prescription label. If the medicine upsets your stomach, take the medicine with food or milk. Do not take more than you are told to take. Talk to your pay agent regarding the use of this medicine in children. This medicine is not approved for use in children. What side effects may I notice from receiving this medicine? Side effects that you should report to your doctor or health career resource technician as soon as possible: allergic reactions like skin rash, itching or hives, swelling of the face, lips, or tongue breathing problems confusion feeling faint or lightheaded, falls stomach pain yellowing of the eyes or skin Side effects that usually do not require medical attention (report to your doctor or health career resource technician if they continue or are bothersome): nausea, vomiting stomach upset What may interact with this medicine? alcohol antihistamines isoniazid medicines for depression, anxiety, or psychotic disturbances medicines for sleep muscle relaxants naltrexone narcotic medicines (opiates) for pain phenobarbital ritonavir tramadol What if I miss a dose? If you miss a dose, take it as soon as you can. If it is almost time for your next dose, take only that dose. Do not take double or extra doses. Where should I keep my medicine? Keep out of the reach of children. This medicine can be abused. Keep your medicine in a safe place to protect it from theft. Do not share this medicine with anyone. Selling or giving away this medicine is dangerous and against the law. Store at room temperature between 15 and 30 degrees C (59 and 86 degrees F). Protect from light. Keep container tightly closed. Throw away any unused medicine after the expiration date. Discard unused medicine and used packaging carefully. Pets and children can be harmed if they find used or lost packages. What should I tell my health care provider before I take this medicine? They need to know if you have any of these conditions: brain tumor Crohn's disease, inflammatory bowel disease, or ulcerative colitis drink more than 3 alcohol-containing drinks per day drug abuse or addiction head injury heart or circulation problems kidney disease or problems going to the bathroom liver disease lung disease, asthma, or breathing problems an unusual or allergic reaction to acetaminophen, hydrocodone, other opioid analgesics, other medicines, foods, dyes, or preservatives or trying to get breast-feeding What should I watch for while using this medicine? Tell your doctor or health career resource technician if your pain does not go away, if it gets worse, or if you have new or a different type of pain. You may develop tolerance to the medicine. Tolerance means that you will need a higher dose of the medicine for pain relief. Tolerance is normal and is expected if you take the medicine for a long time. Do not suddenly stop taking your medicine because you may develop a severe reaction. Your body becomes used to the medicine. This does NOT mean you are addicted. Addiction is a behavior related to getting and using a drug for a non-medical reason. If you have pain, you have a medical reason to take pain medicine. Your doctor will tell you how much medicine to take. If your doctor wants you to stop the medicine, the dose will be slowly lowered over time to avoid any side effects. You may get drowsy or dizzy when you first start taking the medicine or change doses. Do not drive, use machinery, or do anything that may be dangerous until you know how the medicine affects you. Stand or sit up slowly. There are different types of narcotic medicines (opiates) for pain. If you take more than one type at the same time, you may have more side effects. Give your health care provider a list of all medicines you use. Your doctor will tell you how much medicine to take. Do not take more medicine than directed. Call emergency for help if you have problems breathing. The medicine will cause constipation. Try to have a bowel movement at least every 2 to 3 days. If you do not have a bowel movement for 3 days, call your doctor or health career resource technician. Too much acetaminophen can be very dangerous. Do not take Tylenol (acetaminophen) or medicines that contain acetaminophen with this medicine. Many non-prescription medicines contain acetaminophen. Always read the labels carefully. Ondansetron Oral disintegrating tablet What is this medicine? ONDANSETRON (on SUDHA se vishal) is used to treat nausea and vomiting caused by chemotherapy. It is also used to prevent or treat nausea and vomiting after surgery. How should I use this medicine? These tablets are made to dissolve in the mouth. Do not try to push the tablet through the foil backing. With dry hands, peel away the foil backing and gently remove the tablet. Place the tablet in the mouth and allow it to dissolve, then swallow. While you may take these tablets with water, it is not necessary to do so. Talk to your pay agent regarding the use of this medicine in children. Special care may be needed. What side effects may I notice from receiving this medicine? Side effects that you should report to your doctor or health career resource technician as soon as possible: allergic reactions like skin rash, itching or hives, swelling of the face, lips, or tongue breathing problems dizziness fast or irregular heartbeat feeling faint or lightheaded, falls fever and chills swelling of the hands and feet tightness in the chest Side effects that usually do not require medical attention (report to your doctor or health career resource technician if they continue or are bothersome): constipation or diarrhea headache What may interact with this medicine? Do not take this medicine with any of the following medications: -apomorphine -cisapride -dofetilide -dronedarone -pimozide -thioridazine -ziprasidone This medicine may also interact with the following medications: -carbamazepine -phenytoin -rifampicin -tramadol -other medicines that prolong the QT interval (cause an abnormal heart rhythm) What if I miss a dose? If you miss a dose, take it as soon as you can. If it is almost time for your next dose, take only that dose. Do not take double or extra doses. Where should I keep my medicine? Keep out of the reach of children. Store between 2 and 30 degrees C (36 and 86 degrees F). Throw away any unused medicine after the expiration date. What should I tell my health care provider before I take this medicine? They need to know if you have any of these conditions: heart disease history of irregular heartbeat liver disease low levels of magnesium or potassium in the blood an unusual or allergic reaction to ondansetron, granisetron, other medicines, foods, dyes, or preservatives or trying to get breast-feeding What should I watch for while using this medicine? Check with your doctor or health career resource technician as soon as you can if you have any sign of an allergic reaction. You have been given the following additional information: Abdominal Pain, Unknown Cause, (Female) Abdominal Pain, Possible Appendicitis (Female) Smoking Cessation Hydrocodone Bitartrate, Acetaminophen Oral tablet Ondansetron Oral disintegrating tablet Rest. Do not work tomorrow or go to school tomorrow. (Electronically signed by Casey Han DO 04/18/2016 15:56)
--- NOTE | 2016-04-18 15:57 | ED MED RECONCILIATION SUMMARY ---
Patient: ANDREWS ALMONTE Medication Reconciliation Report [facility] VisitID: [id number] [address] [place] [address] 20y, F Registration Date/Time: 04/17/2016 Weight: 102.5 kg Height/Length: 66 in. BMI: 36.5 ALLERGIES: Naproxen The patient's Home Medications are listed below: CONTINUE TAKING THE FOLLOWING MEDICATIONS: Implanon The source(s) of the original Home Medication information: Not obtained. The following Medications were given to the patient in the Emergency Department: Zofran [IVP] IVP 4 mg, administered: 04/17/2016 9:17:00 PM IV NS IV Fluids bolus 0, then 1000 mL/hr, administered: 04/17/2016 9:15:00 PM Dilaudid [IVP] IVP 0.5 mg, administered: 04/17/2016 10:53:00 PM The following Medications were prescribed to the patient: Take acetaminophen (Tylenol, Datril, etc.) according to label instructions. Available over the counter. -- Casey Han DO Hydrocodone/APAP 5mg / 325mg: take 1-2 orally every 8 hours as needed for pain. Dispense ten (10). No refill. -- Casey Han DO Zofran (orally disintegrating tablets) 4 mg: take 1 orally every 8 hours as needed for nausea and vomiting. Dispense five (5). No refill. Substitution is permissible. -- Casey Han DO
--- NOTE | 2016-04-18 15:57 | ED MAR SUMMARY ---
..... Medication Administration Record [facility] [address] [place] [address] Patient: ANDREWS ALMONTE Visit ID: [id number] 20y, F Weight: 102.5 kg Height/Length: 66 in BMI: 36.5 ALLERGIES: Naproxen Start 21:15 04/17/2016 Madison Wu R.N., Stop 23:15 04/17/2016 Nena Sultana, Medication Administered: IV NS (SALINE), Dose: IV Fluids over 1 hour(s), Rate: 1000 mL/hr, Dispensed: 1000 mL bag, Site: #1 right AC. Medication Ordered: IV NS : initial bolus 1000 mL (1000 mL/hr), then 500 mL/hr for X2 (NOW). Given 21:17 04/17/2016 Loree Gr R.N. Medication Administered: ZOFRAN [IVP] (ONDANSETRON HCL), Dose: 4 mg IVP over 1 minute(s), Site: #1 right AC. Medication Ordered: Zofran IV 4 mg (NOW). Given 22:53 04/17/2016 Nena Sultana, Medication Administered: DILAUDID [IVP] (HYDROMORPHONE HCL PF), Dose: 0.5 mg IVP over 1 minute(s), Site: #1 right AC. Medication Ordered: Dilaudid IV 0.5 mg (HIGH ALERT MEDICATION, NOW).
--- NOTE | 2016-04-18 15:57 | ED MAR SUMMARY ---
..... Medication Administration Record [facility] [address] [place] [address] Patient: ANDREWS ALMONTE Visit ID: [id number] 20y, F Weight: 102.5 kg Height/Length: 66 in BMI: 36.5 ALLERGIES: Naproxen Start 21:15 04/17/2016 Madison Wu R.N., Stop 23:15 04/17/2016 Nena Sultana, Medication Administered: IV NS (SALINE), Dose: IV Fluids over 1 hour(s), Rate: 1000 mL/hr, Dispensed: 1000 mL bag, Site: #1 right AC. Medication Ordered: IV NS : initial bolus 1000 mL (1000 mL/hr), then 500 mL/hr for X2 (NOW). Given 21:17 04/17/2016 Loree Gr R.N. Medication Administered: ZOFRAN [IVP] (ONDANSETRON HCL), Dose: 4 mg IVP over 1 minute(s), Site: #1 right AC. Medication Ordered: Zofran IV 4 mg (NOW). Given 22:53 04/17/2016 Nena Sultana, Medication Administered: DILAUDID [IVP] (HYDROMORPHONE HCL PF), Dose: 0.5 mg IVP over 1 minute(s), Site: #1 right AC. Medication Ordered: Dilaudid IV 0.5 mg (HIGH ALERT MEDICATION, NOW).
--- NOTE | 2016-04-18 15:57 | ED MED RECONCILIATION SUMMARY ---
Patient: ANDREWS ALMONTE Medication Reconciliation Report [facility] VisitID: [id number] [address] [place] [address] 20y, F Registration Date/Time: 04/17/2016 Weight: 102.5 kg Height/Length: 66 in. BMI: 36.5 ALLERGIES: Naproxen The patient's Home Medications are listed below: CONTINUE TAKING THE FOLLOWING MEDICATIONS: Implanon The source(s) of the original Home Medication information: Not obtained. The following Medications were given to the patient in the Emergency Department: Zofran [IVP] IVP 4 mg, administered: 04/17/2016 9:17:00 PM IV NS IV Fluids bolus 0, then 1000 mL/hr, administered: 04/17/2016 9:15:00 PM Dilaudid [IVP] IVP 0.5 mg, administered: 04/17/2016 10:53:00 PM The following Medications were prescribed to the patient: Take acetaminophen (Tylenol, Datril, etc.) according to label instructions. Available over the counter. -- Casey Han DO Hydrocodone/APAP 5mg / 325mg: take 1-2 orally every 8 hours as needed for pain. Dispense ten (10). No refill. -- Casey Han DO Zofran (orally disintegrating tablets) 4 mg: take 1 orally every 8 hours as needed for nausea and vomiting. Dispense five (5). No refill. Substitution is permissible. -- Casey Han DO
== END 2016-04-17 23:10 | disposition home or self-care (01) ==
LOC: ED SRH 20:30
DX: R10.31 Right lower quadrant pain (principal); R16.1 Splenomegaly, not elsewhere classified
CPT/HCPCS: 90004; 90100; 92235; 92530; 92760; 92761; 92762; 92763; 92764; 92765; 92766; 92767; 93070; 94060; 95059

== ENCOUNTER 2016-05-20 19:14 | Emergency (ER) | payer OTHER ==
--- NOTE | 2016-05-20 20:29 | DIAGNOSTIC IMAGING REPORT ---
PROCEDURE: XR ABD SERIES 2V ABD/1V CHEST INDICATION: ABDOMINAL PAIN TECHNIQUE: AP supine and upright views with PA view chest. COMPARISON: Compared CT abdomen and pelvis on 04/17/2016. FINDINGS: ABDOMEN: Moderate ingested fluid in the stomach. Mild to moderate stool in the sigmoid colon and rectum. No evidence of free air. Soft tissues and osseous structures are normal. CHEST: Lungs are clear. Heart and mediastinum are normal. Thorax is normal. IMPRESSION: 1. Moderate ingested fluid in the stomach. 2. Mild to moderate stool in the sigmoid colon rectum may be within normal limits, although consider obstipation. 3. Otherwise negative acute abdomen series.
--- NOTE | 2016-05-20 21:28 | ED CLINICAL REPORT ---
Clinical Report - Physicians/Mid Levels [facility] [address] [place] [address] 05/20/2016 19:14 Patient: ANDREWS ALMONTE Time Seen: 19:18. Arrived- By private vehicle. Historian- patient. HISTORY OF PRESENT ILLNESS Chief Complaint: ABDOMINAL PAIN. This started today about 45 minutes ago and is still present. At its maximum, severity described as severe. When seen in the E.D., severity described as moderate. It is described as "pain" and it is described as located in the left lower quadrant. No nausea, vomiting or diarrhea. Similar symptoms previously: Several times. REVIEW OF SYSTEMS Last normal menstrual period unknown. No chills, fever, sweats, calf pain or chest pain. No cough, difficulty breathing, pedal edema, palpitations or black stools. No bloody stools, diarrhea, nausea, vomiting or urinary problems. The patient has had constipation. All systems otherwise negative, except as recorded above. PAST HISTORY Problems: Peptic Ulcer Disease. Gastroesophageal Reflux Disease. Ureterolithiasis. Vomiting. Chemical Exposure, Skin. Back Pain. Asthma. Additional Surgeries: Lithotripsy. Medications: Implanon. Allergies: Naproxen. (sob). SOCIAL HISTORY Current every day smoker (cigarette). No alcohol use or drug use. FAMILY HISTORY Denies family medical history. ADDITIONAL NOTES The nursing notes have been reviewed. PHYSICAL EXAM Vital Signs: 05/20/2016 19:23 BP: 146/76. HR: 142. RR: 26. O2 saturation: 99%. Temp: 98.9 F. Pain level now: 10/10. Have been reviewed. Appearance: Alert. Eyes: Pupils equal, round and reactive to light. ENT: Pharynx normal. Neck: Normal inspection. Neck supple. CVS: Normal heart rate and rhythm. Heart sounds normal. Respiratory: No respiratory distress. Breath sounds normal. Abdomen: Soft. Moderate tenderness in the left side of the abdomen. Bowel sounds normal. No organomegaly. No mass. Back: Normal inspection. No CVA tenderness. Skin: Skin warm and dry. Normal skin color. Normal skin turgor. Extremities: Extremities exhibit normal ROM. No lower extremity edema. LABS, X-RAYS, AND EKG KUB: (IMPRESSION: 1. Moderate ingested fluid in the stomach. 2. Mild to moderate stool in the sigmoid colon rectum may be within normal limits, although consider obstipation. 3. Otherwise negative acute abdomen series.). The X-rays were interpreted by the radiologist and contemporaneously by me. Laboratory Tests: UA-Culture if indicated: (FARNK: 05/20/2016 20:13) ( [facility] 05/20/2016 20:57) Final results Test Result Flag Units (Reference) URINE COLOR YELLOW URINE APPEARANCE SL CLOUDY URINE GLUCOSE NEGATIVE (NEGATIVE) URINE BILIRUBIN NEGATIVE (NEGATIVE) URINE KETONE NEGATIVE (NEGATIVE) URINE SPECIFIC GRAVITY 1.015 (1.010-1.030) URINE PH 8.0 (5.0-8.0) URINE PROTEIN NEGATIVE (NEGATIVE) URINE UROBILINOGEN 0.2 EU/dL (0.2-1.0) URINE NITRITE NEGATIVE (NEGATIVE) URINE BLOOD 2+ (NEGATIVE) URINE LEUK ESTERASE NEGATIVE (NEGATIVE) URINE RBC 0-1 rbc/hpf (0-1) URINE WBC 0-1 wbc/hpf (0-1) URINE EPITHELIAL CELLS 0-1 EPI/hpf (0-5) URINE BACTERIA TRACE (<1+) (NONE SEEN) URINE COMMENT CULT NOT INDICATED 2+ AMORPHOUS URATESURINE CULTURES ARE SET-UP BASED ON THE FOLLOWING CRITERIA:POSITIVE NITRITEPOSITIVE LEUKOCYTE ESTERASEGREATER THAN 10 WHITE BLOOD CELLSMODERATE (2+) OR GREATER BACTERIA Urine: (FRANK: 05/20/2016 20:13) ( [facility] 05/20/2016 20:40) Final results Test Result Flag Units (Reference) URINE NEGATIVE CBC w Diff: (FRANK: 05/20/2016 19:35) ( [facility] [place] [address] 05/20/2016 19:50) Final results Test Result Flag Units (Reference) WHITE BLOOD COUNT 12.1 H K/uL (4.5-11.5) RED BLOOD COUNT 5.21 H M/uL (4.00-5.20) HEMOGLOBIN 14.7 gm/dL (12.0-16.0) HEMATOCRIT 43.5 % (36.0-46.0) MEAN CELL VOLUME 84 fL (80-100) MEAN CORPUSCULAR HGB 28 pg (26-34) MEAN CORPUSCULAR HGB CONC 34 g/dL (31-37) RED CELL DISTRIBUTION WIDTH 13.4 % (11.6-14.8) PLATELET COUNT 304 K/uL (150-400) NEUTROPHIL % 59.3 % (50-75) LYMPH % 28.7 % (25-40) MONO % 9.8 % (3-14) EOSINOPHIL % 1.2 % (0-4) BASOPHIL % 1.0 % (0-2) Urine Drug Screen: (FRANK: 05/20/2016 20:13) ( [facility] [place] [address] 05/20/2016 21:25) Final results Test Result Flag Units (Reference) AMPHETAMINE/METHAMPHETAMINE NEGATIVE (NEGATIVE) BARBITURATE NEGATIVE (NEGATIVE) BENZODIAZEPINE NEGATIVE (NEGATIVE) CANNABINOID NEGATIVE (NEGATIVE) COCAINE NEGATIVE (NEGATIVE) ECSTASY NEGATIVE (NEGATIVE) METHADONE NEGATIVE (NEGATIVE) OPIATE NEGATIVE (NEGATIVE) The urine drug screen is a qualitative screening test fordrug overdose and abuse. All screen results should beconsidered as presumptive.Drugs screened for are as follows:BenzodiazepinesCocaineAmphetamines/MetamphetaminesTHC (Tetrahydrocannabinol)OpiatesBarbituratesEcstasyMethadonePositive results are unconfirmed. For confirmation, notifythe lab for the specimen to be sent to the reference lab.All confirmations must be performed by a differentmethodology.The ingestion of natural herbal and plant productscontaining Ephedra/Ephedra metabolites can produce in urineone or more substances capable of cross reacting withamphetamine/methamphetamine immunoassays. These testsprovide a preliminary result only. A more specificalternative chemical method must be used to obtain aconfirmed analytical result. Lipase: (FRANK: 05/20/2016 19:35) ( [facility] [place] [address] 05/20/2016 20:09) Final results Test Result Flag Units (Reference) LIPASE 164 U/L (73-393) AMYLASE 53 U/L (25-115) BETA HCG, QUANTITATIVE <1 mIU/mL REFERENCE RANGE:Adult Males: <2 mIU/mLNon- Females: <6 mIU/mL Females:Approximate Approximate hCGGestational Age Range (mIU/mL) 0-1 week 0-501-2 weeks 40-3002-3 weeks 100-21223-1 weeks 500-24577-6 months 5,000-200,0002-3 months 10,000-100,0002nd trimester 3,000-50,0003rd trimester 1,000-50,000 CHEM 13 PANEL: (FRANK: 05/20/2016 19:35) ( MsgRcvd 05/20/2016 20:02) Final results Test Result Flag Units (Reference) GLUCOSE 116 H mg/dL (70-110) BUN 17 mg/dL (7-18) CREATININE 0.9 mg/dL (0.6-1.3) Estimated GFR >60 mL/min Estimated GFR- >60 mL/min Note: Persistent reduction over 3 months in eGFR<60 mL/min/1.73 m2 defines CKD. Patients with eGFR values>=60 mL/min/1.73 m2 may also have CKD if evidence ofpersistent proteinuria. Additional information may be foundat www.kidney.org. SODIUM 146 H mmol/L (136-145) POTASSIUM 3.8 mmol/L (3.5-5.1) CHLORIDE 109 H mmol/L (98-107) CARBON DIOXIDE 22 mmol/L (21-32) CALCIUM 9.5 mg/dL (8.5-10.1) TOTAL PROTEIN 7.5 g/dL (6.4-8.2) ALBUMIN 4.0 g/dL (3.3-5.0) BILIRUBIN, TOTAL 0.3 mg/dL (0.0-1.0) ALKALINE PHOSPHATASE 102 U/L (46-116) AST (SGOT) 17 U/L (15-37) ALT (SGPT) 35 U/L (12-78) CPK 116 U/L (24-260) MAGNESIUM 1.9 mg/dL (1.8-2.4) TROPONIN I <0.05 L ng/mL (0.00-1.5) TROPONIN REFERENCE RANGE:<0.1 NEGATIVE0.1-1.5 INDETERMINANT>1.5 POSITIVE . PROGRESS AND PROCEDURES Patient/family counseled. Old medical records reviewed. Disposition: Discharged. Condition: stable. CLINICAL IMPRESSION Constipation INSTRUCTIONS Drink plenty of fluids. Warnings: Further evaluation is necessary. GENERAL WARNINGS: Return or contact your physician immediately if your condition worsens or changes unexpectedly, if not improving as expected, or if other problems arise. Prescription Medications: Fleet Enema 4.5 oz: Insert the enema into rectum gently and squeeze until nearly all the liquid is expelled. Dispense one (1) bottle. No refills. Substitution is permissible. OTC Medications: Colace capsules (available over the counter): take according to label instructions. Understanding of the discharge instructions verbalized by patient. (Electronically signed by Migue Thurston MD 05/30/2016 12:54) Time Seen: 19:30 May 20 2016. Arrived- By private vehicle. Historian- patient. HISTORY OF PRESENT ILLNESS Chief Complaint: ABDOMINAL PAIN. It is described as "pain". Is still present. The patient has had nausea and vomiting. (20-year-old female, developed sudden sharp left abdominal pain over the last 45 minutes. Colonosocpy 2 weeks prior for persistent diarrhea. Neg results. No urinary sx. + IMplanon, and has had menses now for about 2 weeks, h/o similar.). REVIEW OF SYSTEMS Last normal menstrual period now. No constipation, black stools, difficulty with urination, pain with urination or fever. No chest pain, difficulty breathing or chills. All systems otherwise negative, except as recorded above. PAST HISTORY No history of gallstones or bowel obstruction. SOCIAL HISTORY Smoker- current status unknown. No alcohol use or drug use. ADDITIONAL NOTES The nursing notes have been reviewed. PHYSICAL EXAM Vital Signs: 05/20/2016 19:23 BP: 146/76. HR: 142. RR: 26. O2 saturation: 99%. Temp: 98.9 F. Pain level now: 01/21. Appearance: Alert. Anxious. Appears to be in pain. Patient in mild distress. Eyes: Eyes normal inspection. ENT: Nose normal. CVS: Tachycardia. Pulses normal. Respiratory: No respiratory distress. Breath sounds normal. Abdomen: Tenderness in the left side of the abdomen. LABS, X-RAYS, AND EKG EKG: EKG time: (1931). No acute process. No acute ischemia. Tachycardia (123). Normal P waves. Normal PAT. Normal QRS complex. Normal axis. Normal ST and T waves. Prior EKG unavailable. The study has been interpreted contemporaneously. The EKG appears to be a good tracing. KUB: (IMPRESSION: 1. Moderate ingested fluid in the stomach. 2. Mild to moderate stool in the sigmoid colon rectum may be within normal limits, although consider obstipation. 3. Otherwise negative acute abdomen series. Electronically Final signed by:Rickie Hayes MD 05/20/2016 8:27:26 PM). Laboratory Tests: UA-Culture if indicated: (FRANK: 05/20/2016 20:13) ( [facility] 05/20/2016 20:57) Final results Test Result Flag Units (Reference) URINE COLOR YELLOW URINE APPEARANCE SL CLOUDY URINE GLUCOSE NEGATIVE (NEGATIVE) URINE BILIRUBIN NEGATIVE (NEGATIVE) URINE KETONE NEGATIVE (NEGATIVE) URINE SPECIFIC GRAVITY 1.015 (1.010-1.030) URINE PH 8.0 (5.0-8.0) URINE PROTEIN NEGATIVE (NEGATIVE) URINE UROBILINOGEN 0.2 EU/dL (0.2-1.0) URINE NITRITE NEGATIVE (NEGATIVE) URINE BLOOD 2+ (NEGATIVE) URINE LEUK ESTERASE NEGATIVE (NEGATIVE) URINE RBC 0-1 rbc/hpf (0-1) URINE WBC 0-1 wbc/hpf (0-1) URINE EPITHELIAL CELLS 0-1 EPI/hpf (0-5) URINE BACTERIA TRACE (<1+) (NONE SEEN) URINE COMMENT CULT NOT INDICATED 2+ AMORPHOUS URATESURINE CULTURES ARE SET-UP BASED ON THE FOLLOWING CRITERIA:POSITIVE NITRITEPOSITIVE LEUKOCYTE ESTERASEGREATER THAN 10 WHITE BLOOD CELLSMODERATE (2+) OR GREATER BACTERIA Urine: (FRANK: 05/20/2016 20:13) ( MsgRcvd 05/20/2016 20:40) Final results Test Result Flag Units (Reference) URINE NEGATIVE CBC w Diff: (FRANK: 05/20/2016 19:35) ( MsgRcvd 05/20/2016 19:50) Final results Test Result Flag Units (Reference) WHITE BLOOD COUNT 12.1 H K/uL (4.5-11.5) RED BLOOD COUNT 5.21 H M/uL (4.00-5.20) HEMOGLOBIN 14.7 gm/dL (12.0-16.0) HEMATOCRIT 43.5 % (36.0-46.0) MEAN CELL VOLUME 84 fL (80-100) MEAN CORPUSCULAR HGB 28 pg (26-34) MEAN CORPUSCULAR HGB CONC 34 g/dL (31-37) RED CELL DISTRIBUTION WIDTH 13.4 % (11.6-14.8) PLATELET COUNT 304 K/uL (150-400) NEUTROPHIL % 59.3 % (50-75) LYMPH % 28.7 % (25-40) MONO % 9.8 % (3-14) EOSINOPHIL % 1.2 % (0-4) BASOPHIL % 1.0 % (0-2) Urine Drug Screen: (FRANK: 05/20/2016 20:13) ( MsgRcvd 05/20/2016 21:25) Final results Test Result Flag Units (Reference) AMPHETAMINE/METHAMPHETAMINE NEGATIVE (NEGATIVE) BARBITURATE NEGATIVE (NEGATIVE) BENZODIAZEPINE NEGATIVE (NEGATIVE) CANNABINOID NEGATIVE (NEGATIVE) COCAINE NEGATIVE (NEGATIVE) ECSTASY NEGATIVE (NEGATIVE) METHADONE NEGATIVE (NEGATIVE) OPIATE NEGATIVE (NEGATIVE) The urine drug screen is a qualitative screening test fordrug overdose and abuse. All screen results should beconsidered as presumptive.Drugs screened for are as follows:BenzodiazepinesCocaineAmphetamines/MetamphetaminesTHC (Tetrahydrocannabinol)OpiatesBarbituratesEcstasyMethadonePositive results are unconfirmed. For confirmation, notifythe lab for the specimen to be sent to the reference lab.All confirmations must be performed by a differentmethodology.The ingestion of natural herbal and plant productscontaining Ephedra/Ephedra metabolites can produce in urineone or more substances capable of cross reacting withamphetamine/methamphetamine immunoassays. These testsprovide a preliminary result only. A more specificalternative chemical method must be used to obtain aconfirmed analytical result. Lipase: (FRANK: 05/20/2016 19:35) ( MsgRcvd 05/20/2016 20:09) Final results Test Result Flag Units (Reference) LIPASE 164 U/L (73-393) AMYLASE 53 U/L (25-115) BETA HCG, QUANTITATIVE <1 mIU/mL REFERENCE RANGE:Adult Males: <2 mIU/mLNon- Females: <6 mIU/mL Females:Approximate Approximate hCGGestational Age Range (mIU/mL) 0-1 week 0-501-2 weeks 40-3002-3 weeks 100-20757-4 weeks 500-30429-9 months 5,000-200,0002-3 months 10,000-100,0002nd trimester 3,000-50,0003rd trimester 1,000-50,000 CHEM 13 PANEL: (FRANK: 05/20/2016 19:35) ( MsgRcvd 05/20/2016 20:02) Final results Test Result Flag Units (Reference) GLUCOSE 116 H mg/dL (70-110) BUN 17 mg/dL (7-18) CREATININE 0.9 mg/dL (0.6-1.3) Estimated GFR >60 mL/min Estimated GFR- >60 mL/min Note: Persistent reduction over 3 months in eGFR<60 mL/min/1.73 m2 defines CKD. Patients with eGFR values>=60 mL/min/1.73 m2 may also have CKD if evidence ofpersistent proteinuria. Additional information may be foundat www.kidney.org. SODIUM 146 H mmol/L (136-145) POTASSIUM 3.8 mmol/L (3.5-5.1) CHLORIDE 109 H mmol/L (98-107) CARBON DIOXIDE 22 mmol/L (21-32) CALCIUM 9.5 mg/dL (8.5-10.1) TOTAL PROTEIN 7.5 g/dL (6.4-8.2) ALBUMIN 4.0 g/dL (3.3-5.0) BILIRUBIN, TOTAL 0.3 mg/dL (0.0-1.0) ALKALINE PHOSPHATASE 102 U/L (46-116) AST (SGOT) 17 U/L (15-37) ALT (SGPT) 35 U/L (12-78) CPK 116 U/L (24-260) MAGNESIUM 1.9 mg/dL (1.8-2.4) TROPONIN I <0.05 L ng/mL (0.00-1.5) TROPONIN REFERENCE RANGE:<0.1 NEGATIVE0.1-1.5 INDETERMINANT>1.5 POSITIVE . PROGRESS AND PROCEDURES Course of Care: Patient here in the ER with no signs of acute surgical abdomen, slight leukocytosis, patient came in initially hyperventilating. 05/20/2016 20:28 BP: 111/74. HR: 81. O2 saturation: 98%. Temp: 99 F. Patient is stable. Patient/family counseled. Differential Diagnosis: I considered gastritis, gastroenteritis, acute appendicitis, mesenteric lymphadenitis, Meckel's diverticulum, diverticulitis, colon cancer, ulcerative colitis, small bowel obstruction, adhesions, bowel ischemia, biliary colic, splenic injury, intraabdominal abscess, urinary tract infection, cystitis, ovarian cyst and pelvic inflammatory disease as a possible cause of abdominal pain in this patient. This is a partial list of diagnoses considered. Disposition: Discharged. CLINICAL IMPRESSION Acute periumbilical and left lower quadrant abdominal pain of unknown cause. INSTRUCTIONS Drink plenty of fluids. Warnings: Further evaluation is necessary. Prescription Medications: Zofran (orally disintegrating tablets) 4 mg: take 1 orally every 6 hours for 3 days as needed for nausea. No refill. Substitution is permissible. OTC Medications: Take acetaminophen (Tylenol, Datril, etc.) according to label instructions. Available over the counter. Follow-up: Follow up with your doctor in three days. (Electronically signed by Nat Weir P.A.-C 05/20/2016 21:57) Addenda for ANDREWS ALMONTE VisitID: [id number] Date: 05/20/2016 05/27/2016 15:28 SIGNED (Electronically signed by Nat Weir P.A.-C 05/27/2016 15:28)
--- NOTE | 2016-05-20 21:28 | ED ORDER SUMMARY ---
..... Patient: ANDREWS ALMONTE OrderSheet [facility] VisitID: [id number] [place] [address] 20y, F Registration Date/Time: 05/20/2016 ORDER SHEET Weight: 99.7 kg (stated) Allergies: Naproxen GENERAL ORDERS: Sealer Dry Cell (Continuous) (19:05/20/2016 EKoroleva P.A.-C) (Ack 19:31 CHategekimana) (19:33 AMcQuoid ER Tech1) Cardiac Panel Stat (:05/20/2016 EKoroleva P.A.-C) (Ack 19:31 Lylaekimana) (20:00 HOShaughnessy R.N.) Urine Urgent (19:05/20/2016 EKoroleva P.A.-C) (Ack 19:31 Lanaimana) (20:33 AMcQuoid ER Tech1) Urine Drug Screen Urgent (19:05/20/2016 EKoroleva P.A.-C) (Ack 19:31 Marahegekimana) (20:33 AMcQuoid ER Tech1) Lipase Urgent (19:05/20/2016 EKoroleva P.A.-C) (Ack 19:31 Marahegekimana) (20:00 HOShaughnessy R.N.) Amylase Urgent (19:05/20/2016 EKoroleva P.A.-C) (Ack 19:31 Lylaekimana) (20:00 HOShaughnessy R.N.) Serum Quantitative Urgent (19:05/20/2016 EKoroleva P.A.-C) (Ack 19:32 Lylaekimana) (20:00 HOShaughnessy R.N.) EKG - ER Stat (:05/20/2016 EKoroleva P.A.-C) (Ack 19:31 Marahegekimana) (19:33 AMcQuoid ER Tech1) Abd Series 2V Abd/1V Chest Urgent (19:05/20/2016 EKoroleva P.A.-C) (Ack 19:32 Marahotto) (20:57 MCampbell) UA-Culture if indicated Urgent (20:34 05/20/2016 EKoroletila P.A.-C) (20:35 AMcQuoid ER Tech1) MEDICATION ORDERS: Phenergan IV 12.5 mg (HIGH ALERT MEDICATION, NOW) (19:24 05/20/2016 EKoroleva P.A.-C) (19:43 HOSedwar R.N.) IV FLUIDS: IV NS : initial bolus 1000 mL (1000 mL/hr), then 1000 mL/hr for X1 (NOW); Himanshu (19:22 05/20/2016 EKoroleva P.A.-C) (20:00 HOSedwar R.N.) Dilaudid IV 1 mg (HIGH ALERT MEDICATION, NOW) (19:24 05/20/2016 EKoroleva P.A.-C) (20:00 HOSedwar R.N.) ORDER SHEET NOTES: [Electronically signed by Nat WeirACorie-C (21:57 05/20/2016)] [Electronically signed by Vito Alvarado R.N. (22:11 05/20/2016)] [Electronically signed by Migue Thurston MD (12:54 05/30/2016)] [Electronically locked/signed by Vito Alvarado R.N. (22:11 05/20/2016)]
--- NOTE | 2016-05-20 21:28 | ED ORDER SUMMARY ---
..... Patient: ANDREWS ALMONTE OrderSheet [facility] VisitID: [id number] [place] [address] 20y, F Registration Date/Time: 05/20/2016 ORDER SHEET Weight: 99.7 kg (stated) Allergies: Naproxen GENERAL ORDERS: Therapy Manager (Continuous) (19:05/20/2016 EKoroleva P.A.-C) (Ack 19:31 CHategekimana) (19:33 AMcQuoid ER Tech1) Cardiac Panel Stat (:05/20/2016 EKoroleva P.A.-C) (Ack 19:31 Lylaekimana) (20:00 HOShaughnessy R.N.) Urine Urgent (19:05/20/2016 EKoroleva P.A.-C) (Ack 19:31 Lanaimana) (20:33 AMcQuoid ER Tech1) Urine Drug Screen Urgent (19:05/20/2016 EKoroleva P.A.-C) (Ack 19:31 Marahegekimana) (20:33 AMcQuoid ER Tech1) Lipase Urgent (19:05/20/2016 EKoroleva P.A.-C) (Ack 19:31 Marahegekimana) (20:00 HOShaughnessy R.N.) Amylase Urgent (19:05/20/2016 EKoroleva P.A.-C) (Ack 19:31 Lylaekimana) (20:00 HOShaughnessy R.N.) Serum Quantitative Urgent (19:05/20/2016 EKoroleva P.A.-C) (Ack 19:32 Lylaekimana) (20:00 HOShaughnessy R.N.) EKG - ER Stat (:05/20/2016 EKoroleva P.A.-C) (Ack 19:31 Marahegekimana) (19:33 AMcQuoid ER Tech1) Abd Series 2V Abd/1V Chest Urgent (19:05/20/2016 EKoroleva P.A.-C) (Ack 19:32 Marahotto) (20:57 MCampbell) UA-Culture if indicated Urgent (20:34 05/20/2016 EKoroletila P.A.-C) (20:35 AMcQuoid ER Tech1) MEDICATION ORDERS: Phenergan IV 12.5 mg (HIGH ALERT MEDICATION, NOW) (19:24 05/20/2016 EKoroleva P.A.-C) (19:43 HOSedwar R.N.) IV FLUIDS: IV NS : initial bolus 1000 mL (1000 mL/hr), then 1000 mL/hr for X1 (NOW); Himanshu (19:22 05/20/2016 EKoroleva P.A.-C) (20:00 HOSedwar R.N.) Dilaudid IV 1 mg (HIGH ALERT MEDICATION, NOW) (19:24 05/20/2016 EKoroleva P.A.-C) (20:00 HOSedwar R.N.) ORDER SHEET NOTES: [Electronically signed by Nat WeirACorie-C (21:57 05/20/2016)] [Electronically signed by Vito Alvarado R.N. (22:11 05/20/2016)] [Electronically signed by Migue Thurston MD (12:54 05/30/2016)] [Electronically locked/signed by Vito Alvarado R.N. (22:11 05/20/2016)]
--- NOTE | 2016-05-20 21:28 | ED CLINICAL REPORT ---
Clinical Report - Physicians/Mid Levels [facility] [address] [place] [address] 05/20/2016 19:14 Patient: ANDREWS ALMONTE Time Seen: 19:18. Arrived- By private vehicle. Historian- patient. HISTORY OF PRESENT ILLNESS Chief Complaint: ABDOMINAL PAIN. This started today about 45 minutes ago and is still present. At its maximum, severity described as severe. When seen in the E.D., severity described as moderate. It is described as "pain" and it is described as located in the left lower quadrant. No nausea, vomiting or diarrhea. Similar symptoms previously: Several times. REVIEW OF SYSTEMS Last normal menstrual period unknown. No chills, fever, sweats, calf pain or chest pain. No cough, difficulty breathing, pedal edema, palpitations or black stools. No bloody stools, diarrhea, nausea, vomiting or urinary problems. The patient has had constipation. All systems otherwise negative, except as recorded above. PAST HISTORY Problems: Peptic Ulcer Disease. Gastroesophageal Reflux Disease. Ureterolithiasis. Vomiting. Chemical Exposure, Skin. Back Pain. Asthma. Additional Surgeries: Lithotripsy. Medications: Implanon. Allergies: Naproxen. (sob). SOCIAL HISTORY Current every day smoker (cigarette). No alcohol use or drug use. FAMILY HISTORY Denies family medical history. ADDITIONAL NOTES The nursing notes have been reviewed. PHYSICAL EXAM Vital Signs: 05/20/2016 19:23 BP: 146/76. HR: 142. RR: 26. O2 saturation: 99%. Temp: 98.9 F. Pain level now: 10/10. Have been reviewed. Appearance: Alert. Eyes: Pupils equal, round and reactive to light. ENT: Pharynx normal. Neck: Normal inspection. Neck supple. CVS: Normal heart rate and rhythm. Heart sounds normal. Respiratory: No respiratory distress. Breath sounds normal. Abdomen: Soft. Moderate tenderness in the left side of the abdomen. Bowel sounds normal. No organomegaly. No mass. Back: Normal inspection. No CVA tenderness. Skin: Skin warm and dry. Normal skin color. Normal skin turgor. Extremities: Extremities exhibit normal ROM. No lower extremity edema. LABS, X-RAYS, AND EKG KUB: (IMPRESSION: 1. Moderate ingested fluid in the stomach. 2. Mild to moderate stool in the sigmoid colon rectum may be within normal limits, although consider obstipation. 3. Otherwise negative acute abdomen series.). The X-rays were interpreted by the radiologist and contemporaneously by me. Laboratory Tests: UA-Culture if indicated: (FRANK: 05/20/2016 20:13) ( [facility] 05/20/2016 20:57) Final results Test Result Flag Units (Reference) URINE COLOR YELLOW URINE APPEARANCE SL CLOUDY URINE GLUCOSE NEGATIVE (NEGATIVE) URINE BILIRUBIN NEGATIVE (NEGATIVE) URINE KETONE NEGATIVE (NEGATIVE) URINE SPECIFIC GRAVITY 1.015 (1.010-1.030) URINE PH 8.0 (5.0-8.0) URINE PROTEIN NEGATIVE (NEGATIVE) URINE UROBILINOGEN 0.2 EU/dL (0.2-1.0) URINE NITRITE NEGATIVE (NEGATIVE) URINE BLOOD 2+ (NEGATIVE) URINE LEUK ESTERASE NEGATIVE (NEGATIVE) URINE RBC 0-1 rbc/hpf (0-1) URINE WBC 0-1 wbc/hpf (0-1) URINE EPITHELIAL CELLS 0-1 EPI/hpf (0-5) URINE BACTERIA TRACE (<1+) (NONE SEEN) URINE COMMENT CULT NOT INDICATED 2+ AMORPHOUS URATESURINE CULTURES ARE SET-UP BASED ON THE FOLLOWING CRITERIA:POSITIVE NITRITEPOSITIVE LEUKOCYTE ESTERASEGREATER THAN 10 WHITE BLOOD CELLSMODERATE (2+) OR GREATER BACTERIA Urine: (FRANK: 05/20/2016 20:13) ( [facility] 05/20/2016 20:40) Final results Test Result Flag Units (Reference) URINE NEGATIVE CBC w Diff: (FRANK: 05/20/2016 19:35) ( [facility] 05/20[facility] 19:50) Final results Test Result Flag Units (Reference) WHITE BLOOD COUNT 12.1 H K/uL (4.5-11.5) RED BLOOD COUNT 5.21 H M/uL (4.00-5.20) HEMOGLOBIN 14.7 gm/dL (12.0-16.0) HEMATOCRIT 43.5 % (36.0-46.0) MEAN CELL VOLUME 84 fL (80-100) MEAN CORPUSCULAR HGB 28 pg (26-34) MEAN CORPUSCULAR HGB CONC 34 g/dL (31-37) RED CELL DISTRIBUTION WIDTH 13.4 % (11.6-14.8) PLATELET COUNT 304 K/uL (150-400) NEUTROPHIL % 59.3 % (50-75) LYMPH % 28.7 % (25-40) MONO % 9.8 % (3-14) EOSINOPHIL % 1.2 % (0-4) BASOPHIL % 1.0 % (0-2) Urine Drug Screen: (FRANK: 05/20/2016 20:13) ( [facility] [place] 21[facility]25) Final results Test Result Flag Units (Reference) AMPHETAMINE/METHAMPHETAMINE NEGATIVE (NEGATIVE) BARBITURATE NEGATIVE (NEGATIVE) BENZODIAZEPINE NEGATIVE (NEGATIVE) CANNABINOID NEGATIVE (NEGATIVE) COCAINE NEGATIVE (NEGATIVE) ECSTASY NEGATIVE (NEGATIVE) METHADONE NEGATIVE (NEGATIVE) OPIATE NEGATIVE (NEGATIVE) The urine drug screen is a qualitative screening test fordrug overdose and abuse. All screen results should beconsidered as presumptive.Drugs screened for are as follows:BenzodiazepinesCocaineAmphetamines/MetamphetaminesTHC (Tetrahydrocannabinol)OpiatesBarbituratesEcstasyMethadonePositive results are unconfirmed. For confirmation, notifythe lab for the specimen to be sent to the reference lab.All confirmations must be performed by a differentmethodology.The ingestion of natural herbal and plant productscontaining Ephedra/Ephedra metabolites can produce in urineone or more substances capable of cross reacting withamphetamine/methamphetamine immunoassays. These testsprovide a preliminary result only. A more specificalternative chemical method must be used to obtain aconfirmed analytical result. Lipase: (FRAKN: 05/20/2016 19:35) ( [facility] [place] 20:09) Final results Test Result Flag Units (Reference) LIPASE 164 U/L (73-393) AMYLASE 53 U/L (25-115) BETA HCG, QUANTITATIVE <1 mIU/mL REFERENCE RANGE:Adult Males: <2 mIU/mLNon- Females: <6 mIU/mL Females:Approximate Approximate hCGGestational Age Range (mIU/mL) 0-1 week 0-501-2 weeks 40-3002-3 weeks 100-21772-7 weeks 500-25920-7 months 5,000-200,0002-3 months 10,000-100,0002nd trimester 3,000-50,0003rd trimester 1,000-50,000 CHEM 13 PANEL: (FRANK: 05/20/2016 19:35) ( [facility] 05/20/2016 20:02) Final results Test Result Flag Units (Reference) GLUCOSE 116 H mg/dL (70-110) BUN 17 mg/dL (7-18) CREATININE 0.9 mg/dL (0.6-1.3) Estimated GFR >60 mL/min Estimated GFR- >60 mL/min Note: Persistent reduction over 3 months in eGFR<60 mL/min/1.73 m2 defines CKD. Patients with eGFR values>=60 mL/min/1.73 m2 may also have CKD if evidence ofpersistent proteinuria. Additional information may be foundat www.kidney.org. SODIUM 146 H mmol/L (136-145) POTASSIUM 3.8 mmol/L (3.5-5.1) CHLORIDE 109 H mmol/L (98-107) CARBON DIOXIDE 22 mmol/L (21-32) CALCIUM 9.5 mg/dL (8.5-10.1) TOTAL PROTEIN 7.5 g/dL (6.4-8.2) ALBUMIN 4.0 g/dL (3.3-5.0) BILIRUBIN, TOTAL 0.3 mg/dL (0.0-1.0) ALKALINE PHOSPHATASE 102 U/L (46-116) AST (SGOT) 17 U/L (15-37) ALT (SGPT) 35 U/L (12-78) CPK 116 U/L (24-260) MAGNESIUM 1.9 mg/dL (1.8-2.4) TROPONIN I <0.05 L ng/mL (0.00-1.5) TROPONIN REFERENCE RANGE:<0.1 NEGATIVE0.1-1.5 INDETERMINANT>1.5 POSITIVE . PROGRESS AND PROCEDURES Patient/family counseled. Old medical records reviewed. Disposition: Discharged. Condition: stable. CLINICAL IMPRESSION Constipation INSTRUCTIONS Drink plenty of fluids. Warnings: Further evaluation is necessary. GENERAL WARNINGS: Return or contact your physician immediately if your condition worsens or changes unexpectedly, if not improving as expected, or if other problems arise. Prescription Medications: Fleet Enema 4.5 oz: Insert the enema into rectum gently and squeeze until nearly all the liquid is expelled. Dispense one (1) bottle. No refills. Substitution is permissible. OTC Medications: Colace capsules (available over the counter): take according to label instructions. Understanding of the discharge instructions verbalized by patient. (Electronically signed by Migue Thurston MD 05/30/2016 12:54) Time Seen: 19:30 May 20 2016. Arrived- By private vehicle. Historian- patient. HISTORY OF PRESENT ILLNESS Chief Complaint: ABDOMINAL PAIN. It is described as "pain". Is still present. The patient has had nausea and vomiting. (20-year-old female, developed sudden sharp left abdominal pain over the last 45 minutes. Colonosocpy 2 weeks prior for persistent diarrhea. Neg results. No urinary sx. + IMplanon, and has had menses now for about 2 weeks, h/o similar.). REVIEW OF SYSTEMS Last normal menstrual period now. No constipation, black stools, difficulty with urination, pain with urination or fever. No chest pain, difficulty breathing or chills. All systems otherwise negative, except as recorded above. PAST HISTORY No history of gallstones or bowel obstruction. SOCIAL HISTORY Smoker- current status unknown. No alcohol use or drug use. ADDITIONAL NOTES The nursing notes have been reviewed. PHYSICAL EXAM Vital Signs: 05/20/2016 19:23 BP: 146/76. HR: 142. RR: 26. O2 saturation: 99%. Temp: 98.9 F. Pain level now: 01/21. Appearance: Alert. Anxious. Appears to be in pain. Patient in mild distress. Eyes: Eyes normal inspection. ENT: Nose normal. CVS: Tachycardia. Pulses normal. Respiratory: No respiratory distress. Breath sounds normal. Abdomen: Tenderness in the left side of the abdomen. LABS, X-RAYS, AND EKG EKG: EKG time: (1931). No acute process. No acute ischemia. Tachycardia (123). Normal P waves. Normal PAT. Normal QRS complex. Normal axis. Normal ST and T waves. Prior EKG unavailable. The study has been interpreted contemporaneously. The EKG appears to be a good tracing. KUB: (IMPRESSION: 1. Moderate ingested fluid in the stomach. 2. Mild to moderate stool in the sigmoid colon rectum may be within normal limits, although consider obstipation. 3. Otherwise negative acute abdomen series. Electronically Final signed by:Rickie Hayes MD 05/20/2016 8:27:26 PM). Laboratory Tests: UA-Culture if indicated: (FRANK: 05/20/2016 20:13) ( [facility] 05/20/2016 20:57) Final results Test Result Flag Units (Reference) URINE COLOR YELLOW URINE APPEARANCE SL CLOUDY URINE GLUCOSE NEGATIVE (NEGATIVE) URINE BILIRUBIN NEGATIVE (NEGATIVE) URINE KETONE NEGATIVE (NEGATIVE) URINE SPECIFIC GRAVITY 1.015 (1.010-1.030) URINE PH 8.0 (5.0-8.0) URINE PROTEIN NEGATIVE (NEGATIVE) URINE UROBILINOGEN 0.2 EU/dL (0.2-1.0) URINE NITRITE NEGATIVE (NEGATIVE) URINE BLOOD 2+ (NEGATIVE) URINE LEUK ESTERASE NEGATIVE (NEGATIVE) URINE RBC 0-1 rbc/hpf (0-1) URINE WBC 0-1 wbc/hpf (0-1) URINE EPITHELIAL CELLS 0-1 EPI/hpf (0-5) URINE BACTERIA TRACE (<1+) (NONE SEEN) URINE COMMENT CULT NOT INDICATED 2+ AMORPHOUS URATESURINE CULTURES ARE SET-UP BASED ON THE FOLLOWING CRITERIA:POSITIVE NITRITEPOSITIVE LEUKOCYTE ESTERASEGREATER THAN 10 WHITE BLOOD CELLSMODERATE (2+) OR GREATER BACTERIA Urine: (FRANK: 05/20/2016 20:13) ( [facility] 05/20/2016 20:40) Final results Test Result Flag Units (Reference) URINE NEGATIVE CBC w Diff: (FARNK: 05/20/2016 19:35) ( [facility] 05/20/2016 19:50) Final results Test Result Flag Units (Reference) WHITE BLOOD COUNT 12.1 H K/uL (4.5-11.5) RED BLOOD COUNT 5.21 H M/uL (4.00-5.20) HEMOGLOBIN 14.7 gm/dL (12.0-16.0) HEMATOCRIT 43.5 % (36.0-46.0) MEAN CELL VOLUME 84 fL (80-100) MEAN CORPUSCULAR HGB 28 pg (26-34) MEAN CORPUSCULAR HGB CONC 34 g/dL (31-37) RED CELL DISTRIBUTION WIDTH 13.4 % (11.6-14.8) PLATELET COUNT 304 K/uL (150-400) NEUTROPHIL % 59.3 % (50-75) LYMPH % 28.7 % (25-40) MONO % 9.8 % (3-14) EOSINOPHIL % 1.2 % (0-4) BASOPHIL % 1.0 % (0-2) Urine Drug Screen: (FRANK: 05/20/2016 20:13) ( [facility] 05/20/2016 21:25) Final results Test Result Flag Units (Reference) AMPHETAMINE/METHAMPHETAMINE NEGATIVE (NEGATIVE) BARBITURATE NEGATIVE (NEGATIVE) BENZODIAZEPINE NEGATIVE (NEGATIVE) CANNABINOID NEGATIVE (NEGATIVE) COCAINE NEGATIVE (NEGATIVE) ECSTASY NEGATIVE (NEGATIVE) METHADONE NEGATIVE (NEGATIVE) OPIATE NEGATIVE (NEGATIVE) The urine drug screen is a qualitative screening test fordrug overdose and abuse. All screen results should beconsidered as presumptive.Drugs screened for are as follows:BenzodiazepinesCocaineAmphetamines/MetamphetaminesTHC (Tetrahydrocannabinol)OpiatesBarbituratesEcstasyMethadonePositive results are unconfirmed. For confirmation, notifythe lab for the specimen to be sent to the reference lab.All confirmations must be performed by a differentmethodology.The ingestion of natural herbal and plant productscontaining Ephedra/Ephedra metabolites can produce in urineone or more substances capable of cross reacting withamphetamine/methamphetamine immunoassays. These testsprovide a preliminary result only. A more specificalternative chemical method must be used to obtain aconfirmed analytical result. Lipase: (FRANK: 05/20/2016 19:35) ( [facility] 05/20/2016 20:09) Final results Test Result Flag Units (Reference) LIPASE 164 U/L (73-393) AMYLASE 53 U/L (25-115) BETA HCG, QUANTITATIVE <1 mIU/mL REFERENCE RANGE:Adult Males: <2 mIU/mLNon- Females: <6 mIU/mL Females:Approximate Approximate hCGGestational Age Range (mIU/mL) 0-1 week 0-501-2 weeks 40-3002-3 weeks 100-63571-3 weeks 500-00337-7 months 5,000-200,0002-3 months 10,000-100,0002nd trimester 3,000-50,0003rd trimester 1,000-50,000 CHEM 13 PANEL: (FRANK: 05/20/2016 19:35) ( [facility] 05/20/2016 20:02) Final results Test Result Flag Units (Reference) GLUCOSE 116 H mg/dL (70-110) BUN 17 mg/dL (7-18) CREATININE 0.9 mg/dL (0.6-1.3) Estimated GFR >60 mL/min Estimated GFR- >60 mL/min Note: Persistent reduction over 3 months in eGFR<60 mL/min/1.73 m2 defines CKD. Patients with eGFR values>=60 mL/min/1.73 m2 may also have CKD if evidence ofpersistent proteinuria. Additional information may be foundat www.kidney.org. SODIUM 146 H mmol/L (136-145) POTASSIUM 3.8 mmol/L (3.5-5.1) CHLORIDE 109 H mmol/L (98-107) CARBON DIOXIDE 22 mmol/L (21-32) CALCIUM 9.5 mg/dL (8.5-10.1) TOTAL PROTEIN 7.5 g/dL (6.4-8.2) ALBUMIN 4.0 g/dL (3.3-5.0) BILIRUBIN, TOTAL 0.3 mg/dL (0.0-1.0) ALKALINE PHOSPHATASE 102 U/L (46-116) AST (SGOT) 17 U/L (15-37) ALT (SGPT) 35 U/L (12-78) CPK 116 U/L (24-260) MAGNESIUM 1.9 mg/dL (1.8-2.4) TROPONIN I <0.05 L ng/mL (0.00-1.5) TROPONIN REFERENCE RANGE:<0.1 NEGATIVE0.1-1.5 INDETERMINANT>1.5 POSITIVE . PROGRESS AND PROCEDURES Course of Care: Patient here in the ER with no signs of acute surgical abdomen, slight leukocytosis, patient came in initially hyperventilating. 05/20/2016 20:28 BP: 111/74. HR: 81. O2 saturation: 98%. Temp: 99 F. Patient is stable. Patient/family counseled. Differential Diagnosis: I considered gastritis, gastroenteritis, acute appendicitis, mesenteric lymphadenitis, Meckel's diverticulum, diverticulitis, colon cancer, ulcerative colitis, small bowel obstruction, adhesions, bowel ischemia, biliary colic, splenic injury, intraabdominal abscess, urinary tract infection, cystitis, ovarian cyst and pelvic inflammatory disease as a possible cause of abdominal pain in this patient. This is a partial list of diagnoses considered. Disposition: Discharged. CLINICAL IMPRESSION Acute periumbilical and left lower quadrant abdominal pain of unknown cause. INSTRUCTIONS Drink plenty of fluids. Warnings: Further evaluation is necessary. Prescription Medications: Zofran (orally disintegrating tablets) 4 mg: take 1 orally every 6 hours for 3 days as needed for nausea. No refill. Substitution is permissible. OTC Medications: Take acetaminophen (Tylenol, Datril, etc.) according to label instructions. Available over the counter. Follow-up: Follow up with your doctor in three days. (Electronically signed by Nat Weir P.A.-C 05/20/2016 21:57) Addenda for ANDREWS ALMONTE VisitID: [id number] Date: 05/20/2016 05/27/2016 15:28 SIGNED (Electronically signed by Nat Weir P.A.-C 05/27/2016 15:28)
--- NOTE | 2016-05-20 21:28 | ED NURSING NOTES ---
Clinical Report - Nurses [facility] [address] [place] [address] 05/20/2016 19:14 Patient: ANDREWS ALMONTE TRIAGE Triage time 1923 PM. Acuity: LEVEL 3. Chief Complaint: ABDOMINAL PAIN and (left sided abdominal pain). Alert. No acute distress. --19:26 Vito Alvarado R.N. 19:23 05/20/16. BP: 146/76. HR: 142. RR: 26. O2 saturation: 99%. Temp: 98.9 F (oral). Pain level now: 01/21. --19:26 Vito Alvarado R.N. Weight: 99.7 kg stated. Height/Length: 66 inches Per Patient. BMI: 35.5. Growth Chart Percentile: Weight: 98.6%. Height/Length: 74.7%. --19:25 Vito Alvarado R.N. Medications Implanon. --19:52 Vito Alvarado R.N. Allergies Naproxen. (sob) --19:52 Vito Alvarado R.N. History Arrived by private vehicle. Historian: patient. Accompanied by family. This started just prior to arrival. ( Patient presents to the ED with symptoms of sudden onset left sided abdominal pain beginning approximately 45 minutes ago.). She has had nausea and abdominal pain. 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 PAST MEDICAL HX: Gastroesophageal reflux disease. Peptic ulcer disease. Immunizations: up-to-date. Uses an intrauterine device. SOCIAL HX: Light tobacco smoker (cigarette)- less than 1/2 a pack per day. Alcohol use. (no). History of drug use. (no). FALL RISK ASSESSMENT: Fall risk assessment completed. No fall risk identified. NUTRITIONAL RISK ASSESSMENT: The nutritional risk assessment revealed no deficiencies. FUNCTIONAL ASSESSMENT: Functional assessment: no impairments noted. LEARNING NEEDS ASSESSMENT: The learning needs assessment revealed no barriers. SKIN INTEGRITY ASSESSMENT: Skin integrity risk assessment completed. No skin integrity risk identified. --19:26 Vito Alvarado R.N. PROBLEMS: Abdominal Pain. Ureterolithiasis. Vomiting. Back Pain. Asthma. --19:52 Vito Alvarado R.N. ADDITIONAL SURGERIES: Lithotripsy. --19:52 Vito Alvarado R.N. Interventions ID band on patient. To treatment room. --19:26 Vito Alvarado R.N. PHYSICAL ASSESSMENT Ambulatory to room. GENERAL / NEURO / PSYCH: Alert. Oriented X 4. Appears in no acute distress. Appears in pain and anxious. HEENT: Mucous membranes are pink. RESPIRATORY: Respirations not labored. Breath sounds within normal limits. CVS: Cardiac rhythm: sinus tachycardia. Capillary refill less than 2 seconds. GI / : The patient has had nausea. Abdominal tenderness in the left upper quadrant and left side of the abdomen. Guarding present. SKIN: Skin is warm and dry. --19:26 Vito Alvarado R.N. NURSING PROGRESS NOTES Reassurance given. Call light placed in reach. Side rails up x 1. Bed placed in lowest position. Brakes of bed on. --19:27 Vito Alvarado R.N. 19:32. EKG was performed by a tech. --19:34 Lynn Moses ER Tech1 19:34. secured entrance monitor, pulse oximeter and NIBP monitor placed on patient; (Telemetry strip posted to chart). --19:34 Lynn Moses ER Tech1 19:42 05/20/2016 Site #1 started via IV in the right antecubital space with an 18g angiocath; one attempt. Blood drawn: rainbow set. Labeled in the presence of the patient and sent to the lab. Saline lock flushed with 10 mL saline. --19:43 Vito Alvarado R.N. 19:43 05/20/2016 Started 12.5 mg of PHENERGAN (Promethazine HCl) IVPB in bag #1 100 mL; bolus of 12.5 mg wide open via site #1 via IV pump. Allergies verified and confirmed 5 rights. IV patency established. IV site checked: no pain, redness, or swelling. IV flushed thoroughly pre- and post-medication administration. --19:43 Vito Alvarado R.N. 20:00 05/20/2016 Dilaudid (HYDROmorphone HCl PF) IVP 1 mg given over 2 minute(s) via site #1. Allergies verified, confirmed 5 rights and sedative warning given to the patient. IV patency established. IV site checked: no pain, redness, or swelling. IV flushed thoroughly pre- and post-medication administration. IVP given by RN. --20:00 Vito Alvarado R.N. 20:00 05/20/2016 Started IV Fluids IV NS (Saline); bolus of 1000 mL wide open via site #1. Allergies verified and confirmed 5 rights. IV patency established site checked: no pain, redness, or swelling flushed thoroughly pre- and post-medication administration. --20:00 Vito Alvarado R.N. Checked patient name and birthdate: patient confirmed. Instructions provided to collect clean catch urine and patient verbalized understanding. Clean catch urine collected with return of yellow-colored cloudy urine; sample sent to lab for urinalysis and culture. Specimen labeled in the presence of the patient. --20:16 Vito Alvarado R.N. 20:28 05/20/16. BP: 111/74. HR: 81. O2 saturation: 98%. Temp: 99 F. --20:29 Lidia Goldberg. DISPOSITION / DISCHARGE <<STRICKEN ENTRY-- 20:56 05/20/16. BP: 131/68. HR: 102. RR: 16. O2 saturation: 99%. Temp: 98.2 F (oral). Pain level now: 07/22. --20:57 Vito Alvarado R.N. --END STRIKE>> Charted on wrong patient. --21:52 Vito Alvarado R.N. <<STRICKEN ENTRY-- Condition at departure: improved. The goals identified in the patient's plan of care were met. No learning barriers present. Discharge instructions provided and reviewed with the patient and parent. Reviewed medication(s) side effects, precautions, dosing and course information. Prescription(s) given to the patient. Reviewed splint care instructions. Patient verbalized understanding. The patient was discharged home and accompanied by parent. She left the Emergency Department ambulatory and via private vehicle. Parent driving. FALL RISK ASSESSMENT: Fall risk assessment completed. No fall risk identified. --20:57 Vito Alvarado R.N. --END STRIKE>> Correction --21:52 Vito Alvarado R.N. Condition at departure: improved. The goals identified in the patient's plan of care were met. No learning barriers present. Discharge instructions provided and reviewed with the patient. Reviewed medication(s) side effects, precautions, dosing and course information. Prescription(s) given to the patient. Reviewed fever care instructions. Reviewed referral to a primary care physician. Patient verbalized understanding. Written instructions provided in Finnish. The patient was discharged home and accompanied by parent. She left the Emergency Department ambulatory and via private vehicle. Parent driving. FALL RISK ASSESSMENT: Fall risk assessment completed. No fall risk identified. --22:09 Vito Alvarado R.N. 22:00 05/20/16. BP: 102/53. HR: 97. RR: 16. O2 saturation: 98%. Temp: 98.2 F. Pain level now: 05/24. --22:09 Vito Alvarado R.N. 22:10 05/20/2016 Site #1 removed upon discharge. Catheter intact. Pressure dressing applied. --22:10 Vito Alvarado R.N. 22:10 05/20/2016 IV Fluids IV NS Discontinued: bag #1 infused upon discharge. Total amount infused: 1000 mL. IV patency established. IV site checked: no pain, redness, or swelling. IV flushed thoroughly. --22:10 Vito Alvarado R.N. Departure time: 2009 PM. --22:10 Vito Alvarado R.N. Locked/Released at 05/20/2016 22:11 by Vito Alvarado R.N.
--- NOTE | 2016-05-30 12:54 | ED DISCHARGE INSTRUCTIONS ---
Patient: ANDREWS ALMONTE General Instructions [facility] VisitID: [id number] [place] [address] 20y, F Registration Date/Time: 05/20/2016 Constipation INSTRUCTIONS Drink plenty of fluids. Warnings: Further evaluation is necessary. GENERAL WARNINGS: Return or contact your physician immediately if your condition worsens or changes unexpectedly, if not improving as expected, or if other problems arise. Prescription Medications: Fleet Enema 4.5 oz: Insert the enema into rectum gently and squeeze until nearly all the liquid is expelled. Dispense one (1) bottle. No refills. Substitution is permissible. OTC Medications: Colace capsules (available over the counter): take according to label instructions. Understanding of the discharge instructions verbalized by patient. ADDITIONAL INFORMATION Constipation (Adult) Constipation is bowel movements that are less frequent than usual. Stools often become very hard and difficult to pass. This may lead to abdominal pain and bloating. It may also cause painful bowel movements. Constipation may be due to a diet thats low in fiber. Some medications, especially pain medications, can also cause it. Constipation may be treated with enemas, suppositories, laxatives or stool softeners. Your doctor will advise you which will work best for you. Follow the advice below to help avoid this problem in the future. Home Care Medication: Take any medicines as directed. Some laxatives are safe only for occasional use. Others can be taken on a regular basis. Talk to your doctor or pharmacist if you have questions. General Care: Prescription pain medications can cause constipation. If you are prescribed pain medications, ask the doctor whether you should also take a stool softener. A diet high in fiber with plenty of fluids helps to maintain regular, soft bowel movements. The following foods are good sources of dietary fiber: Cereals and breads: Whole grain cereal with bran, oatmeal, rolled oats, whole grain breads Fruits: All fruits (fresh and dried), raisins, prunes, apricots, berries, figs Vegetables: Any fresh vegetables, especially peas, broccoli, brussels sprouts, winter squash, green beans, cauliflower, mosqueda beans, carrots Other: Popcorn, brown rice Drink plenty of water when you increase the amount of fiber you eat. Follow Up with your doctor or return to this facility if symptoms do not improve in the next few days. You may require further tests or a referral to a specialist. Get Prompt Medical Attention if any of the following occur: Fever over 100.4F (38C) Failure to resume normal bowel movements Increasing abdominal or back pain Nausea or vomiting Abdominal swelling Blood in the stool Weakness, dizziness or fainting Unexpected vaginal bleeding High Fiber Diet Fiber is present in all fruits, vegetables, cereals and grains. Fiber passes through the body undigested. A high fiber diet helps food move through the intestinal tract. The added bulk is helpful in preventing constipation. In people with diverticulosis it serves to clean out the pouches along the colon wall while preventing new ones from forming. A high fiber diet also reduces the risk of colon cancer, decreases blood cholesterol and prevents high blood sugar in people with diabetes. The foods listed below are high in fiber and should be included in your diet. If you are not used to high fiber foods, start with 1 or 2 foods from this list. Every 3-4 days add a new one to your diet until you are eating 4 high fiber foods per day. This should give you 20-35 Gm of fiber/day. It is also important to drink a lot of water when you are on this diet (6-8 glasses a day). Water causes the fiber to swell and increases the benefit. Foods High In Dietary Fiber: BREADS: Made with 100% whole wheat flour; jaime, wheat or rye crackers; tortillas, bran muffins CEREALS: Whole grain cereal with bran (Chex, Raisin Bran, [place] Bran), oatmeal, rolled oats, granola, wheat flakes, brown rice NUTS: Any nuts FRUITS: All fresh fruits along with edible skins, (bananas, citrus fruit, mangoes, pears, prunes, raisins, apples, pineapple, apricot, melon, jams and marmalades), fruit juices (especially prune juice) VEGETABLES: All types, preferably raw or lightly cooked: especially, celery, eggplant, potatoes,spinach, broccoli, brussel sprouts, winter squash, carrots, cauliflower, soybeans, lentils, fresh and dried beans of all kinds OTHER: Popcorn, any spices Docusate Sodium Oral tablet What is this medicine? DOCUSATE (doc CUE sayt) is stool softener. It helps prevent constipation and straining or discomfort associated with hard or dry stools. How should I use this medicine? Take this medicine by mouth with a glass of water. Follow the directions on the label. Take your doses at regular intervals. Do not take your medicine more often than directed. Talk to your azure developer regarding the use of this medicine in children. While this medicine may be prescribed for children as young as 2 years for selected conditions, precautions do apply. What side effects may I notice from receiving this medicine? Side effects that you should report to your doctor or health career manager as soon as possible: allergic reactions like skin rash, itching or hives, swelling of the face, lips, or tongue Side effects that usually do not require medical attention (report to your doctor or health career manager if they continue or are bothersome): diarrhea stomach cramps throat irritation What may interact with this medicine? mineral oil What if I miss a dose? If you miss a dose, take it as soon as you can. If it is almost time for your next dose, take only that dose. Do not take double or extra doses. Where should I keep my medicine? Keep out of the reach of children. Store at room temperature between 15 and 30 degrees C (59 and 86 degrees F). Throw away any unused medicine after the expiration date. What should I tell my health care provider before I take this medicine? They need to know if you have any of these conditions: nausea or vomiting severe constipation stomach pain sudden change in bowel habit lasting more than 2 weeks an unusual or allergic reaction to docusate, other medicines, foods, dyes, or preservatives or trying to get breast-feeding What should I watch for while using this medicine? Do not use for more than one week without advice from your doctor or health career manager. If your constipation returns, check with your doctor or health career manager. Drink plenty of water while taking this medicine. Drinking water helps decrease constipation. Stop using this medicine and contact your doctor or health career manager if you experience any rectal bleeding or do not have a bowel movement after use. These could be signs of a more serious condition. You have been given the following additional information: Constipation (Adult) Diet, High Fiber Docusate Sodium Oral tablet (Electronically signed by Migue Thurston MD 05/30/2016 12:54) Acute periumbilical and left lower quadrant abdominal pain of unknown cause. INSTRUCTIONS Drink plenty of fluids. Warnings: Further evaluation is necessary. Prescription Medications: Zofran (orally disintegrating tablets) 4 mg: take 1 orally every 6 hours for 3 days as needed for nausea. No refill. Substitution is permissible. OTC Medications: Take acetaminophen (Tylenol, Datril, etc.) according to label instructions. Available over the counter. Follow-up: Follow up with your doctor in three days. ADDITIONAL INFORMATION Abdominal Pain, Unknown Cause (Female) The exact cause of your abdominal (stomach) pain is not certain. This does not mean that this is something to worry about, or the right tests were not done. Everyone likes to know the exact cause of the problem, but sometimes with abdominal pain, there is no clear-cut cause, and this could be a good thing. The good news is that your symptoms can be treated, and you will feel better. Your condition does not seem serious now; however, sometimes the signs of a serious problem may take more time to appear. For this reason,it is important for you to watch for any new symptoms, problems,or worsening of your condition. Over the next few days, the abdominal pain may come and go, or be continuous. Other common symptoms can include nausea and vomiting. Sometimes it can be difficult to tell if you feel nauseous, you may just feel bad and not associate that feeling with nausea. Constipation, diarrhea, and a fever may go along with the pain. The pain may continue even if treated correctly over the following days. Depending on how things go, sometimes the cause can become clear and may require further or different treatment. Additional evaluations, medications, or tests may be needed. Home care Your health care provider may prescribe medications for pain, symptoms, or an infection. Follow the health care provider's instructions for taking these medications. General care Rest until your next exam. No strenuous activities. Try to find positions that ease discomfort. A small pillow placed on the abdomen may help relieve pain. Something warm on your abdomen (such as a heating pad) may help, but be careful not to burn yourself. Diet Do not force yourself to eat, especially if having cramps, vomiting, or diarrhea. Water is important so you do not get dehydrated. Soup may also be good. Sports drinks may also help, especially if they are not too acidic. Make sure you don't drink sugary drinks as this can make things worse. Take liquids in small amounts. Do not guzzle them. Caffeine sometimes makes the pain and cramping worse. Avoid dairy products if you have vomiting or diarrhea. Don't eat large amounts at a time. Wait a few minutes between bites. Eat a diet low in fiber (called a low-residue diet). Foods allowed include refined breads, white rice, fruit and vegetable juices without pulp, tender meats. These foods will pass more easily through the intestine. Avoid whole-grain foods, whole fruits and vegetables, meats, seeds and nuts, fried or fatty foods, dairy, alcohol and spicy foods until your symptoms go away. Follow-up care Follow up with your health care provider as instructed, or if your pain does not begin to improve in the next 24 hours. When to seek medical care Seek prompt medical care if any of the following occur: Pain gets worse or moves to the right lower abdomen New or worsening vomiting or diarrhea Swelling of the abdomen Unable to pass stool for more than three days Fever of 100.4F (38C) or higher, or as directed by your healthcare provider. Blood in vomit or bowel movements (dark red or black color) Jaundice (yellow color of eyes and skin) Weakness, dizziness Chest, arm, back, neck or jaw pain Unexpected vaginal bleeding or missed period Call 911 Call emergency services if any of the following occur: Trouble breathing Confusion Fainting or loss of consciousness Rapid heart rate Seizure Symptoms With Uncertain Cause [Adult] Based on the exam and any tests that were performed today, the exact cause of your symptoms is not certain. While your condition does not seem serious, the signs of a serious problem may take more time to appear. Therefore, it is important for you to watch for any new symptoms or worsening of your condition.Follow up with your doctor or this facility, as directed.A repeat physical exam or additional testing at a later time may uncover a cause for your symptoms that is not evident today. Home Care: Resume your usual activities and diet when this feels comfortable to do so. Follow Up with your doctor, or as advised by our staff.Contact your doctor sooner if your symptoms do not begin to improve in the next few days. [NOTE: If you had an x-ray, CT scan, ultrasound, or ECG (electrocardiogram), it will be reviewed by a specialist. You will be notified of any new findings that may affect your care.] Get Prompt Medical Attention if any of the following occur: Current symptoms get worse New symptoms appear Ondansetron Hydrochloride Oral tablet What is this medicine? ONDANSETRON (on SUDHA se vishal) is used to treat nausea and vomiting caused by chemotherapy. It is also used to prevent or treat nausea and vomiting after surgery. How should I use this medicine? Take this medicine by mouth with a glass of water. Follow the directions on your prescription label. Take your doses at regular intervals. Do not take your medicine more often than directed. Talk to your azure developer regarding the use of this medicine in children. Special care may be needed. What side effects may I notice from receiving this medicine? Side effects that you should report to your doctor or health career manager as soon as possible: allergic reactions like skin rash, itching or hives, swelling of the face, lips or tongue breathing problems dizziness fast or irregular heartbeat feeling faint or lightheaded, falls fever and chills swelling of the hands or feet tightness in the chest Side effects that usually do not require medical attention (report to your doctor or health career manager if they continue or are bothersome): constipation or diarrhea headache What may interact with this medicine? Do not take this medicine with any of the following medications: -apomorphine -cisapride -dofetilide -dronedarone -pimozide -thioridazine -ziprasidone This medicine may also interact with the following medications: -carbamazepine -phenytoin -rifampicin -tramadol -other medicines that prolong the QT interval (cause an abnormal heart rhythm) What if I miss a dose? If you miss a dose, take it as soon as you can. If it is almost time for your next dose, take only that dose. Do not take double or extra doses. Where should I keep my medicine? Keep out of the reach of children. Store between 2 and 30 degrees C (36 and 86 degrees F). Throw away any unused medicine after the expiration date. What should I tell my health care provider before I take this medicine? They need to know if you have any of these conditions: heart disease history of irregular heartbeat liver disease low levels of magnesium or potassium in the blood an unusual or allergic reaction to ondansetron, granisetron, other medicines, foods, dyes, or preservatives or trying to get breast-feeding What should I watch for while using this medicine? Check with your doctor or health career manager right away if you have any sign of an allergic reaction. You have been given the following additional information: Abdominal Pain, Unknown Cause, (Female) Symptoms With Uncertain Cause Ondansetron Hydrochloride Oral tablet (Electronically signed by Nat Weir P.A.-C 05/20/2016 21:57)
--- NOTE | 2016-05-30 12:54 | ED MAR SUMMARY ---
..... Medication Administration Record [facility] [address] [place] [address] Patient: ANDREWS ALMONTE Visit ID: [id number] 20y, F Weight: 99.7 kg Height/Length: 66 in BMI: 35.5 ALLERGIES: Naproxen Start 19:43 05/20/2016 Vito Alvarado R.N. Medication Administered: PHENERGAN [IVPB] (PROMETHAZINE HCL), Dose: 12.5 mg IVPB, Bolus: 12.5 mg wide open, Dispensed: 100 mL bag, Site: #1 right AC. Medication Ordered: Phenergan IV 12.5 mg (HIGH ALERT MEDICATION, NOW). Start 20:00 05/20/2016 Vito Alvarado R.N., Stop 22:10 05/20/2016 Vito Alvarado R.N. Medication Administered: IV NS (SALINE), Dose: IV Fluids, Bolus: 1000 mL wide open, Site: #1 right AC. Medication Ordered: IV NS : initial bolus 1000 mL (1000 mL/hr), then 1000 mL/hr for X1 (NOW); Himanshu. Given 20:00 05/20/2016 Vito Alvarado R.N. Medication Administered: DILAUDID [IVP] (HYDROMORPHONE HCL PF), Dose: 1 mg IVP over 2 minute(s), Site: #1 right AC. Medication Ordered: Dilaudid IV 1 mg (HIGH ALERT MEDICATION, NOW).
--- NOTE | 2016-05-30 12:54 | ED MAR SUMMARY ---
..... Medication Administration Record [facility] [address] [place] [address] Patient: ANDREWS ALMONTE Visit ID: [id number] 20y, F Weight: 99.7 kg Height/Length: 66 in BMI: 35.5 ALLERGIES: Naproxen Start 19:43 05/20/2016 Vito Alvarado R.N. Medication Administered: PHENERGAN [IVPB] (PROMETHAZINE HCL), Dose: 12.5 mg IVPB, Bolus: 12.5 mg wide open, Dispensed: 100 mL bag, Site: #1 right AC. Medication Ordered: Phenergan IV 12.5 mg (HIGH ALERT MEDICATION, NOW). Start 20:00 05/20/2016 Vito Alvarado R.N., Stop 22:10 05/20/2016 Vito Alvarado R.N. Medication Administered: IV NS (SALINE), Dose: IV Fluids, Bolus: 1000 mL wide open, Site: #1 right AC. Medication Ordered: IV NS : initial bolus 1000 mL (1000 mL/hr), then 1000 mL/hr for X1 (NOW); Himanshu. Given 20:00 05/20/2016 Vito Alvarado R.N. Medication Administered: DILAUDID [IVP] (HYDROMORPHONE HCL PF), Dose: 1 mg IVP over 2 minute(s), Site: #1 right AC. Medication Ordered: Dilaudid IV 1 mg (HIGH ALERT MEDICATION, NOW).
--- NOTE | 2016-05-30 12:55 | ED MED RECONCILIATION SUMMARY ---
Patient: ANDREWS ALMONTE Medication Reconciliation Report [facility] VisitID: [id number] [place] [address] 20y, F Registration Date/Time: 05/20/2016 Weight: 99.7 kg Height/Length: 66 in. BMI: 35.5 ALLERGIES: Naproxen The patient's Home Medications are listed below: THE FOLLOWING MEDICATIONS NEED TO BE RECONCILED: Implanon The source(s) of the original Home Medication information: Not obtained. The following Medications were given to the patient in the Emergency Department: PHENERGAN [IVPB] IVPB bolus 12.5 mg wide open, then 12.5 mg, administered: 05/20/2016 7:43:00 PM Dilaudid [IVP] IVP 1 mg, administered: 05/20/2016 8:00:00 PM IV NS IV Fluids bolus 1000 mL wide open, administered: 05/20/2016 8:00:00 PM The following Medications were prescribed to the patient: Colace capsules (available over the counter): take according to label instructions. -- Migue Thurston MD Fleet Enema 4.5 oz: Insert the enema into rectum gently and squeeze until nearly all the liquid is expelled. Dispense one (1) bottle. No refills. Substitution is permissible. -- Migue Thurston MD Take acetaminophen (Tylenol, Datril, etc.) according to label instructions. Available over the counter. -- Nat Weir, P.A.-Kvng Zofran (orally disintegrating tablets) 4 mg: take 1 orally every 6 hours for 3 days as needed for nausea. No refill. Substitution is permissible. -- Nat Weir, P.A.-C
--- NOTE | 2016-05-30 12:55 | ED MED RECONCILIATION SUMMARY ---
Patient: ANDREWS ALMONTE Medication Reconciliation Report [facility] VisitID: [id number] [place] [address] 20y, F Registration Date/Time: 05/20/2016 Weight: 99.7 kg Height/Length: 66 in. BMI: 35.5 ALLERGIES: Naproxen The patient's Home Medications are listed below: THE FOLLOWING MEDICATIONS NEED TO BE RECONCILED: Implanon The source(s) of the original Home Medication information: Not obtained. The following Medications were given to the patient in the Emergency Department: PHENERGAN [IVPB] IVPB bolus 12.5 mg wide open, then 12.5 mg, administered: 05/20/2016 7:43:00 PM Dilaudid [IVP] IVP 1 mg, administered: 05/20/2016 8:00:00 PM IV NS IV Fluids bolus 1000 mL wide open, administered: 05/20/2016 8:00:00 PM The following Medications were prescribed to the patient: Colace capsules (available over the counter): take according to label instructions. -- Migue Thurston MD Fleet Enema 4.5 oz: Insert the enema into rectum gently and squeeze until nearly all the liquid is expelled. Dispense one (1) bottle. No refills. Substitution is permissible. -- Migue Thurston MD Take acetaminophen (Tylenol, Datril, etc.) according to label instructions. Available over the counter. -- Nat Weir, P.A.-Kvng Zofran (orally disintegrating tablets) 4 mg: take 1 orally every 6 hours for 3 days as needed for nausea. No refill. Substitution is permissible. -- Nat Weir, P.A.-C
== END 2016-05-20 22:00 | disposition home or self-care (01) ==
LOC: ED SRH 19:14
DX: R10.33 Periumbilical pain (principal); R10.32 Left lower quadrant pain; F17.200 Nicotine dependence, unspecified, uncomplicated; Z88.6 Allergy status to analgesic agent
CPT/HCPCS: 90004; 90100; 90197; 90616; 92235; 92530; 92610; 92720; 92760; 92761; 92762; 92763; 92764; 92765; 92766; 92767; 93070; 95059

== ENCOUNTER 2016-07-03 15:58 | Emergency (ER) | payer OTHER ==
--- NOTE | 2016-07-03 18:56 | DIAGNOSTIC IMAGING REPORT ---
PROCEDURE: CT ABDOMEN/PELVIS W/O CONTRAST INDICATION: ABDOMINAL PAIN TECHNIQUE: Axial CT images were obtained through the abdomen and pelvis without IV contrast. Coronal and sagittal reformations were created. COMPARISON: 04/17/2016 FINDINGS: Clear lung bases. Normal sized heart. No hiatal hernia. Splenomegaly, 16 cm in AP diameter, with inferior splenule, stable. The unenhanced appearance of the liver, gallbladder, adrenal glands, kidneys, pancreas and spleen is otherwise normal. The abdominal aorta is normal in its course and caliber. There are no suspicious calcifications, retroperitoneal adenopathy or masses. The stomach, upper bowel loops, and mesentery are normal. Intact anterior abdominal wall. No free fluid or inflammation. The unenhanced appearance of the uterus, ovaries, urinary bladder, pelvic vessels, and pelvic bowel loops is normal. Normal appendix. No suspicious calcifications, free pelvic fluid or mass. Intact osseous structures. IMPRESSION: 1. No CT evidence of obstructive uropathy or urinary calculi. 2. Splenomegaly, stable. 3. Findings called to the emergency room. All CT scans at this facility use dose modulation, iterative reconstruction, and/or weight-based dosing when appropriate to reduce radiation dose to as low as reasonably achievable.
--- NOTE | 2016-07-03 19:25 | ED NURSING NOTES ---
Clinical Report - Nurses [facility] [place] [place] [address] 07/03/2016 15:58 Patient: ANDREWS ALMONTE TRIAGE Triage time 16:05. Acuity: LEVEL 3. Chief Complaint: ABDOMINAL PAIN and NAUSEA. SEPSIS SCREEN: Sepsis Screen. Negative (no infection suspected/documented). --16:11 Praveena Conrad R.N. 16:05 07/03/16. BP: 128/59. HR: 101. RR: 20. O2 saturation: 99%. Temp: 99.2 F. Pain level now 7/10. --16:11 Praveena Conrad R.N. Weight: 96.1 kg stated. Height/Length: 66 inches Per Patient. BMI: 34.2. Growth Chart Percentile: Weight: 98.3%. Height/Length: 74.7%. --16:09 Praveena Conrad R.N. Medications Vicodin. --16:07 Praveena Conrad R.N. Allergies Naproxen. --16:07 Praveena Conrad R.N. History This started just prior to arrival. ( Left flank pain after bending over this morning, felt a "pop", had immediate onset of 7/10 stabbing pain, now worsening.). She has had nausea and abdominal pain. 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 SOCIAL HX: Current every day light tobacco smoker (cigarette)- less than 1/2 a pack per day. History of occasional drug use: marijuana. No alcohol use. No recent travel. No infectious disease exposure. No known contact with a sick individual. SELF HARM ASSESSMENT: A self harm assessment was performed. The patient answered "no" to the question "Do you have thoughts of harming or killing yourself?". --16:11 Praveena Conrad R.N. PROBLEMS: Constipation. Peptic Ulcer Disease. Gastroesophageal Reflux Disease. Abdominal Pain. Ureterolithiasis. Vomiting. Back Pain. Asthma. --16:09 Praveena Conrad R.N. ADDITIONAL SURGERIES: Lithotripsy. --16:09 Praveena Conrad R.N. Interventions ID band on patient. To treatment room. --16:11 Praveena Conrad R.N. PHYSICAL ASSESSMENT GENERAL / NEURO / PSYCH: Alert. Oriented X 4. Appears in no acute distress. RESPIRATORY: Respirations not labored. Breath sounds within normal limits. CVS: Normal sinus rhythm noted. GI / : Abdomen soft. ( left flank pain, worse with movement, constant). SKIN: Skin is warm and dry. --16:12 Praveena Conrad R.N. NURSING PROGRESS NOTES Patient gowned. Reassurance given. Call light placed in reach. Bed placed in lowest position. Patient waiting for evaluation. --16:12 Praveena Conrad R.N. 16:25 07/03/2016 Started bag #1 1000 mL IV Fluids IV NS (Saline); bolus of 1000 mL wide open via site #1 --16:35 Praveena Conrad R.N. 16:26 07/03/2016 Zofran (Ondansetron HCl) IVP 4 mg given over 2 minute(s) via site #1. Allergies verified and confirmed 5 rights. IV patency established. IV site checked: no pain, redness, or swelling. IV flushed thoroughly pre- and post-medication administration. --16:36 Praveena Conrad R.N. 16:26 07/03/2016 Toradol IVP 30 mg given over 2 minute(s) via site #1. --16:36 Praveena Conrad R.N. 16:29 07/03/2016 Site #1 started via IV in the left antecubital space with an 20g angiocath; one attempt. Blood drawn: rainbow set. Saline lock flushed with 10 mL saline. --16:34 Praveena Conrad R.N. Patient ID band checked for patient name. Clean catch urine collected with return of yellow-colored clear urine; sample sent to lab for urinalysis and HCG. Specimen labeled in the presence of the patient. Call light placed in reach. --16:35 Praveena Conrad R.N. ( pt resting quietly. Awaiting labs). --17:18 Praveena Conrad R.N. 17:18 07/03/16. BP: 103/52. HR: 86. RR: 18. O2 saturation: 100%. --17:19 Praveena Conrad R.N. 17:21 07/03/2016 IV Fluids IV NS Discontinued: bag #1 infused. Total amount infused: 1000 mL. --17:46 Praveena Conrad R.N. ( Pt. back from CT, on monitor. awaiting CT results.). --18:10 Praveena Conrad R.N. 18:10 07/03/16. BP: 123/70. HR: 85. RR: 18. O2 saturation: 100%. --18:10 Praveena Conrad R.N. Care transferred and report received (praveena, rn). --18:57 Madison Wu R.N. 19:40 07/03/2016 Site #1 removed upon discharge. Catheter intact. Manual pressure, pressure dressing and bandaid applied. --20:51 Phil Lozano R.N. DISPOSITION / DISCHARGE 19:45 07/03/16. BP: 112/69. HR: 87. RR: 16. O2 saturation: 98% on room air. Temp: 98.8 F (oral). Pain level now: 0/10. --20:48 Phil Lozano R.N. Departure time: 1944. --20:48 Phil Lozano R.N. 19:45. Condition at departure: improved. No learning barriers present. Discharge instructions provided and reviewed with the patient. Reviewed medication(s) (prescription given to pt). Reviewed referral to family practice for followup. Patient verbalized understanding. Written instructions provided in Austrian. The patient was discharged by the physician. She was discharged home and accompanied by drug safety assistant. She left the Emergency Department ambulatory and via private vehicle. [place] driving. --21:07 Phil Lozano R.N. Locked/Released at 07/03/2016 21:09 by Phil Lozano R.N.
--- NOTE | 2016-07-03 19:25 | ED NURSING NOTES ---
Clinical Report - Nurses [facility] [place] [address] [address] 07/03/2016 15:58 Patient: ANDREWS ALMONTE TRIAGE Triage time 16:05. Acuity: LEVEL 3. Chief Complaint: ABDOMINAL PAIN and NAUSEA. SEPSIS SCREEN: Sepsis Screen. Negative (no infection suspected/documented). --16:11 Praveena Conrad R.N. 16:05 07/03/16. BP: 128/59. HR: 101. RR: 20. O2 saturation: 99%. Temp: 99.2 F. Pain level now 7/10. --16:11 Praveena Conrad R.N. Weight: 96.1 kg stated. Height/Length: 66 inches Per Patient. BMI: 34.2. Growth Chart Percentile: Weight: 98.3%. Height/Length: 74.7%. --16:09 Praveena Conrad R.N. Medications Vicodin. --16:07 Praveena Conrad R.N. Allergies Naproxen. --16:07 Praevena Conrad R.N. History This started just prior to arrival. ( Left flank pain after bending over this morning, felt a "pop", had immediate onset of 7/10 stabbing pain, now worsening.). She has had nausea and abdominal pain. 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 SOCIAL HX: Current every day light tobacco smoker (cigarette)- less than 1/2 a pack per day. History of occasional drug use: marijuana. No alcohol use. No recent travel. No infectious disease exposure. No known contact with a sick individual. SELF HARM ASSESSMENT: A self harm assessment was performed. The patient answered "no" to the question "Do you have thoughts of harming or killing yourself?". --16:11 Praveena Conrad R.N. PROBLEMS: Constipation. Peptic Ulcer Disease. Gastroesophageal Reflux Disease. Abdominal Pain. Ureterolithiasis. Vomiting. Back Pain. Asthma. --16:09 Praveena Conrad R.N. ADDITIONAL SURGERIES: Lithotripsy. --16:09 Praveena Conrad R.N. Interventions ID band on patient. To treatment room. --16:11 Praveena Conrad R.N. PHYSICAL ASSESSMENT GENERAL / NEURO / PSYCH: Alert. Oriented X 4. Appears in no acute distress. RESPIRATORY: Respirations not labored. Breath sounds within normal limits. CVS: Normal sinus rhythm noted. GI / : Abdomen soft. ( left flank pain, worse with movement, constant). SKIN: Skin is warm and dry. --16:12 Praveena Conrad R.N. NURSING PROGRESS NOTES Patient gowned. Reassurance given. Call light placed in reach. Bed placed in lowest position. Patient waiting for evaluation. --16:12 Praveena Conrad R.N. 16:25 07/03/2016 Started bag #1 1000 mL IV Fluids IV NS (Saline); bolus of 1000 mL wide open via site #1 --16:35 Praveena Conrad R.N. 16:26 07/03/2016 Zofran (Ondansetron HCl) IVP 4 mg given over 2 minute(s) via site #1. Allergies verified and confirmed 5 rights. IV patency established. IV site checked: no pain, redness, or swelling. IV flushed thoroughly pre- and post-medication administration. --16:36 Praveena Conrad R.N. 16:26 07/03/2016 Toradol IVP 30 mg given over 2 minute(s) via site #1. --16:36 Praveena Conrad R.N. 16:29 07/03/2016 Site #1 started via IV in the left antecubital space with an 20g angiocath; one attempt. Blood drawn: rainbow set. Saline lock flushed with 10 mL saline. --16:34 Praveena Conrad R.N. Patient ID band checked for patient name. Clean catch urine collected with return of yellow-colored clear urine; sample sent to lab for urinalysis and HCG. Specimen labeled in the presence of the patient. Call light placed in reach. --16:35 Praveena Conrad R.N. ( pt resting quietly. Awaiting labs). --17:18 Praveena Conrad R.N. 17:18 07/03/16. BP: 103/52. HR: 86. RR: 18. O2 saturation: 100%. --17:19 Praveena Conrad R.N. 17:21 07/03/2016 IV Fluids IV NS Discontinued: bag #1 infused. Total amount infused: 1000 mL. --17:46 Praveena Conrad R.N. ( Pt. back from CT, on monitor. awaiting CT results.). --18:10 Praveena Conrad R.N. 18:10 07/03/16. BP: 123/70. HR: 85. RR: 18. O2 saturation: 100%. --18:10 Praveena Conrad R.N. Care transferred and report received (praveena, rn). --18:57 Madison Wu R.N. 19:40 07/03/2016 Site #1 removed upon discharge. Catheter intact. Manual pressure, pressure dressing and bandaid applied. --20:51 Phil Lozano R.N. DISPOSITION / DISCHARGE 19:45 07/03/16. BP: 112/69. HR: 87. RR: 16. O2 saturation: 98% on room air. Temp: 98.8 F (oral). Pain level now: 0/10. --20:48 Phil Lozano R.N. Departure time: 1944. --20:48 Phil Lozano R.N. 19:45. Condition at departure: improved. No learning barriers present. Discharge instructions provided and reviewed with the patient. Reviewed medication(s) (prescription given to pt). Reviewed referral to family practice for followup. Patient verbalized understanding. Written instructions provided in Montenegrin. The patient was discharged by the physician. She was discharged home and accompanied by financial secretary. She left the Emergency Department ambulatory and via private vehicle. [place] driving. --21:07 Phil Lozano R.N. Locked/Released at 07/03/2016 21:09 by Phil Lozano R.N.
--- NOTE | 2016-07-03 19:25 | ED CLINICAL REPORT ---
Clinical Report - Physicians/Mid Levels [facility] [address] [place] [address] 07/03/2016 15:58 Patient: ANDREWS ALMONTE Time Seen: 16:02; initial patient contact. Arrived- By private vehicle. Historian- patient. HISTORY OF PRESENT ILLNESS Chief Complaint: ABDOMINAL PAIN and FLANK PAIN. At its maximum, severity described as moderate. When seen in the E.D., severity described as moderate. Modifying factors. Not worsened by anything. Not relieved by anything. It is described as "pain" and it is described as located in the right side of the back and right pelvis and radiating to the groin. This started just prior to arrival and is still present. The patient has had nausea and vomiting. No loss of appetite or diarrhea. Similar symptoms previously: Many times. Recent medical care: Not recently seen/assessed. REVIEW OF SYSTEMS No constipation, difficulty with urination, pain with urination, urinary frequency or missed periods. No fever or chills. All systems otherwise negative, except as recorded above. PAST HISTORY Constipation. Peptic Ulcer Disease. Gastroesophageal Reflux Disease. Abdominal Pain. Ureterolithiasis. Vomiting. Back Pain. Asthma. \\ ADDITIONAL SURGERIES: Lithotripsy. SOCIAL HISTORY Current every day smoker. History of drug use: marijuana. No alcohol use. ADDITIONAL NOTES The nursing notes have been reviewed with agreement regarding the chief complaint, PMH and patient medications and allergies. PHYSICAL EXAM Vital Signs: 07/03/2016 16:05 BP: 128/59. HR: 101. RR: 20. O2 saturation: 99%. Temp: 99.2 F. Have been reviewed. Blood pressure normal. Tachycardic. Respiratory rate normal. Temperature normal. Oxygen saturation normal. Appearance: Alert. Oriented X3. Appears to be in pain. Eyes: Eyes normal inspection. ENT: Pharynx normal. CVS: Normal heart rate and rhythm. Heart sounds normal. Respiratory: No respiratory distress. Breath sounds normal. Abdomen: Soft. Mild tenderness in the right lower quadrant. No guarding, rebound tenderness or obturator or psoas sign present. Bowel sounds normal. No organomegaly. No mass. Back: Normal inspection. No CVA tenderness. Skin: Normal skin color. No rash. Extremities: No lower extremity edema. Neuro: Oriented X 3. LABS, X-RAYS, AND EKG Abdominal CT: 1. No CT evidence of obstructive uropathy or urinary calculi. 2. Splenomegaly, stable. Study type: renal stone evaluation. Abdominal CT performed without contrast. The study was independently viewed by me, interpreted by the radiologist and discussed with the radiologist. A comparison with prior studies reveals that the findings are unchanged. Interpretation time: 19:16. Laboratory Tests: UA-Culture if indicated: (FRANK: 07/03/2016 16:10) ( [facility] [place]/03/2016 17:09) Final results Test Result Flag Units (Reference) URINE COLOR YELLOW URINE APPEARANCE CLEAR URINE GLUCOSE NEGATIVE (NEGATIVE) URINE BILIRUBIN NEGATIVE (NEGATIVE) URINE KETONE NEGATIVE (NEGATIVE) URINE SPECIFIC GRAVITY 1.025 (1.010-1.030) URINE PH 6.0 (5.0-8.0) URINE PROTEIN NEGATIVE (NEGATIVE) URINE UROBILINOGEN 0.2 EU/dL (0.2-1.0) URINE NITRITE NEGATIVE (NEGATIVE) URINE BLOOD TRACE-INTACT (NEGATIVE) URINE LEUK ESTERASE NEGATIVE (NEGATIVE) URINE RBC 1-3 rbc/hpf (0-1) URINE WBC NONE SEEN wbc/hpf (0-1) URINE EPITHELIAL CELLS 0-1 EPI/hpf (0-5) URINE BACTERIA TRACE (<1+) (NONE SEEN) URINE COMMENT CULT NOT INDICATED 1+ MUCOUSURINE CULTURES ARE SET-UP BASED ON THE FOLLOWING CRITERIA:POSITIVE NITRITEPOSITIVE LEUKOCYTE ESTERASEGREATER THAN 10 WHITE BLOOD CELLSMODERATE (2+) OR GREATER BACTERIA Urine: (FRANK: 07/03/2016 16:10) ( [facility] [place] 07/03/2016 16:58) Final results Test Result Flag Units (Reference) URINE NEGATIVE CBC w Diff: (FRANK: 07/03/2016 16:30) ( [facility] [place] 07/03/2016 16:54) Final results Test Result Flag Units (Reference) WHITE BLOOD COUNT 8.7 K/uL (4.5-11.5) RED BLOOD COUNT 4.74 M/uL (4.00-5.20) HEMOGLOBIN 13.4 gm/dL (12.0-16.0) HEMATOCRIT 40.0 % (36.0-46.0) MEAN CELL VOLUME 84 fL (80-100) MEAN CORPUSCULAR HGB 28 pg (26-34) MEAN CORPUSCULAR HGB CONC 34 g/dL (31-37) RED CELL DISTRIBUTION WIDTH 13.2 % (11.6-14.8) PLATELET COUNT 260 K/uL (150-400) NEUTROPHIL % 56.8 % (50-75) LYMPH % 32.1 % (25-40) MONO % 9.0 % (3-14) EOSINOPHIL % 1.6 % (0-4) BASOPHIL % 0.5 % (0-2) CMP: (FRANK: 07/03/2016 16:30) ( MsgRcvd 07/03/2016 17:17) Final results Test Result Flag Units (Reference) GLUCOSE 87 mg/dL (70-110) BUN 15 mg/dL (7-18) CREATININE 0.9 mg/dL (0.6-1.3) Estimated GFR >60 mL/min Estimated GFR- >60 mL/min Note: Persistent reduction over 3 months in eGFR<60 mL/min/1.73 m2 defines CKD. Patients with eGFR values>=60 mL/min/1.73 m2 may also have CKD if evidence ofpersistent proteinuria. Additional information may be foundat www.kidney.org. SODIUM 141 mmol/L (136-145) POTASSIUM 3.8 mmol/L (3.5-5.1) CHLORIDE 103 mmol/L (98-107) CARBON DIOXIDE 30 mmol/L (21-32) CALCIUM 8.9 mg/dL (8.5-10.1) TOTAL PROTEIN 7.5 g/dL (6.4-8.2) ALBUMIN 4.0 g/dL (3.3-5.0) BILIRUBIN, TOTAL 0.3 mg/dL (0.0-1.0) ALKALINE PHOSPHATASE 83 U/L (46-116) AST (SGOT) 18 U/L (15-37) ALT (SGPT) 31 U/L (12-78) . PROGRESS AND PROCEDURES Disposition: Discharged home in good and improved condition. Condition: good. CLINICAL IMPRESSION Acute right lower quadrant abdominal pain of unknown cause. INSTRUCTIONS Do not work tomorrow. Your Current Medications: CONTINUE TAKING THE FOLLOWING MEDICATIONS: Vicodin*. Prescription Medications: Hydrocodone/APAP 5mg / 325mg: take 1 orally every 6 hours as needed for pain. Dispense fifteen (15). No refill. Zofran (orally disintegrating tablets) 4 mg: take 1 orally every 6 hours as needed for nausea and vomiting. Dispense ten (10). Substitution is permissible. Follow-up: Follow up with your doctor in about two days. Call for an appointment. Screening today revealed the patient's blood pressure to be in the normal range. (Electronically signed by Martin Keller Dr. 07/03/2016 22:16)
--- NOTE | 2016-07-03 19:25 | ED ORDER SUMMARY ---
..... Patient: ANDREWS ALMONTE OrderSheet [facility] VisitID: [id number] [place] [address] 20y, F Registration Date/Time: 07/03/2016 ORDER SHEET Weight: 96.1 kg (stated) Allergies: Naproxen GENERAL ORDERS: CBC w Diff Urgent (16:19 07/03/2016 Nikia Macias) (16:20 SStone R.N.) (Ack 16:20 Belia) CMP Urgent (16:19 07/03/2016 Nikia Macias) (16:20 SStone R.N.) (Ack 16:20 Belia) UA-Culture if indicated Urgent (16:19 07/03/2016 Nikia Macias) (16:20 SStone R.N.) (Ack 16:20 Belia) Urine Urgent (16:07/03/2016 Nikia Macias) (16:20 SStone R.N.) (Ack 16:20 Belia) CT Abd/Pel wo Cont (R flank/RLQ pain) Urgent (17:45 07/03/2016 Nikia Macias) (Ack 17:47 LNations ER Tech1) (20:48 Mariaelena R.Jerry.) MEDICATION ORDERS: IV FLUIDS: IV NS : initial bolus none -, then 1000 mL/hr for X1 (NOW) (16:18 07/03/2016 Nikia Macias) (Ack 16:20 SStone R.N.) (16:35 SStone R.N.) Toradol IV 30 mg (NOW) (16:19 07/03/2016 Nikia Macias) (Ack 16:20 SStone R.N.) (16:36 SStone R.N.) Zofran IV 4 mg (NOW) (16:07/03/2016 Nikia Macias) (Ack 16:20 SStone R.N.) (16:36 SStone R.N.) ORDER SHEET NOTES: [Electronically signed by Phil Lozano R.N. (21:09 07/03/2016)] [Electronically signed by Martin Keller Dr. (22:16 07/03/2016)] [Electronically locked/signed by Phil Lozano R.N. (21:09 07/03/2016)]
--- NOTE | 2016-07-03 19:25 | ED ORDER SUMMARY ---
..... Patient: ANDREWS ALMONTE OrderSheet [facility] VisitID: [id number] [place] [address] 20y, F Registration Date/Time: 07/03/2016 ORDER SHEET Weight: 96.1 kg (stated) Allergies: Naproxen GENERAL ORDERS: CBC w Diff Urgent (16:19 07/03/2016 Nikia Macias) (16:20 SStone R.N.) (Ack 16:20 Belia) CMP Urgent (16:19 07/03/2016 Nikia Macias) (16:20 SStone R.N.) (Ack 16:20 Belia) UA-Culture if indicated Urgent (16:19 07/03/2016 Nikia Macias) (16:20 SStone R.N.) (Ack 16:20 Belia) Urine Urgent (16:07/03/2016 Nikia Macias) (16:20 SStone R.N.) (Ack 16:20 Belia) CT Abd/Pel wo Cont (R flank/RLQ pain) Urgent (17:45 07/03/2016 Nikia Macias) (Ack 17:47 LNations ER Tech1) (20:48 Mariaelena R.Jerry.) MEDICATION ORDERS: IV FLUIDS: IV NS : initial bolus none -, then 1000 mL/hr for X1 (NOW) (16:18 07/03/2016 Nikia Macias) (Ack 16:20 SStone R.N.) (16:35 SStone R.N.) Toradol IV 30 mg (NOW) (16:19 07/03/2016 Nikia Macias) (Ack 16:20 SStone R.N.) (16:36 SStone R.N.) Zofran IV 4 mg (NOW) (16:07/03/2016 Nikia Macias) (Ack 16:20 SStone R.N.) (16:36 SStone R.N.) ORDER SHEET NOTES: [Electronically signed by Phil Lozano R.N. (21:09 07/03/2016)] [Electronically signed by Martin Keller Dr. (22:16 07/03/2016)] [Electronically locked/signed by Phil Lozano R.N. (21:09 07/03/2016)]
--- NOTE | 2016-07-03 22:17 | ED MAR SUMMARY ---
..... Medication Administration Record [facility] [address] [place] [address] Patient: ANDREWS ALMONTE Visit ID: [id number] 20y, F Weight: 96.1 kg Height/Length: 66 in BMI: 34.2 ALLERGIES: Naproxen Start 16:25 07/03/2016 Praveena Conrad R.N., Stop 17:21 07/03/2016 Praveena Conrad R.N. Medication Administered: IV NS (SALINE), Dose: IV Fluids, Bolus: 1000 mL wide open, Dispensed: 1000 mL bag, Site: #1. Medication Ordered: IV NS : initial bolus none -, then 1000 mL/hr for X1 (NOW). Given 16:07/03/2016 Praveena Conrad R.N. Medication Administered: TORADOL [IVP], Dose: 30 mg IVP over 2 minute(s), Site: #1. Medication Ordered: Toradol IV 30 mg (NOW). Given 16:07/03/2016 Praveena Conrad R.N. Medication Administered: ZOFRAN [IVP] (ONDANSETRON HCL), Dose: 4 mg IVP over 2 minute(s), Site: #1. Medication Ordered: Zofran IV 4 mg (NOW).
--- NOTE | 2016-07-03 22:17 | ED MED RECONCILIATION SUMMARY ---
Patient: ANDREWS ALMONTE Medication Reconciliation Report [facility] VisitID: [id number] [address] [place] [address] 20y, F Registration Date/Time: 07/03/2016 Weight: 96.1 kg Height/Length: 66 in. BMI: 34.2 ALLERGIES: Naproxen The patient's Home Medications are listed below: CONTINUE TAKING THE FOLLOWING MEDICATIONS: Vicodin The source(s) of the original Home Medication information: Not obtained. The following Medications were given to the patient in the Emergency Department: IV NS IV Fluids bolus 1000 mL wide open, administered: 07/03/2016 4:25:00 PM Zofran [IVP] IVP 4 mg, administered: 07/03/2016 4:26:00 PM Toradol [IVP] IVP 30 mg, administered: 07/03/2016 4:26:00 PM The following Medications were prescribed to the patient: Hydrocodone/APAP 5mg / 325mg: take 1 orally every 6 hours as needed for pain. Dispense fifteen (15). No refill. -- Martin Keller Dr. Zofran (orally disintegrating tablets) 4 mg: take 1 orally every 6 hours as needed for nausea and vomiting. Dispense ten (10). Substitution is permissible. -- Martin Keller Dr.
--- NOTE | 2016-07-03 22:17 | ED DISCHARGE INSTRUCTIONS ---
Patient: ANDREWS ALMONTE General Instructions [facility] VisitID: [id number] [place] [address] 20y, F Registration Date/Time: 07/03/2016 Acute right lower quadrant abdominal pain of unknown cause. INSTRUCTIONS Do not work tomorrow. Your Current Medications: CONTINUE TAKING THE FOLLOWING MEDICATIONS: Vicodin*. Prescription Medications: Hydrocodone/APAP 5mg / 325mg: take 1 orally every 6 hours as needed for pain. Dispense fifteen (15). No refill. Zofran (orally disintegrating tablets) 4 mg: take 1 orally every 6 hours as needed for nausea and vomiting. Dispense ten (10). Substitution is permissible. Follow-up: Follow up with your doctor in about two days. Call for an appointment. Screening today revealed the patient's blood pressure to be in the normal range. ADDITIONAL INFORMATION Abdominal Pain, Unknown Cause (Female) The exact cause of your abdominal (stomach) pain is not certain. This does not mean that this is something to worry about, or the right tests were not done. Everyone likes to know the exact cause of the problem, but sometimes with abdominal pain, there is no clear-cut cause, and this could be a good thing. The good news is that your symptoms can be treated, and you will feel better. Your condition does not seem serious now; however, sometimes the signs of a serious problem may take more time to appear. For this reason,it is important for you to watch for any new symptoms, problems,or worsening of your condition. Over the next few days, the abdominal pain may come and go, or be continuous. Other common symptoms can include nausea and vomiting. Sometimes it can be difficult to tell if you feel nauseous, you may just feel bad and not associate that feeling with nausea. Constipation, diarrhea, and a fever may go along with the pain. The pain may continue even if treated correctly over the following days. Depending on how things go, sometimes the cause can become clear and may require further or different treatment. Additional evaluations, medications, or tests may be needed. Home care Your health care provider may prescribe medications for pain, symptoms, or an infection. Follow the health care provider's instructions for taking these medications. General care Rest until your next exam. No strenuous activities. Try to find positions that ease discomfort. A small pillow placed on the abdomen may help relieve pain. Something warm on your abdomen (such as a heating pad) may help, but be careful not to burn yourself. Diet Do not force yourself to eat, especially if having cramps, vomiting, or diarrhea. Water is important so you do not get dehydrated. Soup may also be good. Sports drinks may also help, especially if they are not too acidic. Make sure you don't drink sugary drinks as this can make things worse. Take liquids in small amounts. Do not guzzle them. Caffeine sometimes makes the pain and cramping worse. Avoid dairy products if you have vomiting or diarrhea. Don't eat large amounts at a time. Wait a few minutes between bites. Eat a diet low in fiber (called a low-residue diet). Foods allowed include refined breads, white rice, fruit and vegetable juices without pulp, tender meats. These foods will pass more easily through the intestine. Avoid whole-grain foods, whole fruits and vegetables, meats, seeds and nuts, fried or fatty foods, dairy, alcohol and spicy foods until your symptoms go away. Follow-up care Follow up with your health care provider as instructed, or if your pain does not begin to improve in the next 24 hours. When to seek medical care Seek prompt medical care if any of the following occur: Pain gets worse or moves to the right lower abdomen New or worsening vomiting or diarrhea Swelling of the abdomen Unable to pass stool for more than three days Fever of 100.4F (38C) or higher, or as directed by your healthcare provider. Blood in vomit or bowel movements (dark red or black color) Jaundice (yellow color of eyes and skin) Weakness, dizziness Chest, arm, back, neck or jaw pain Unexpected vaginal bleeding or missed period Call 911 Call emergency services if any of the following occur: Trouble breathing Confusion Fainting or loss of consciousness Rapid heart rate Seizure Hydrocodone Bitartrate, Acetaminophen Oral tablet What is this medicine? ACETAMINOPHEN; HYDROCODONE (a set a KARYNA bryce fen; en droe KOE done) is a pain reliever. It is used to treat mild to moderate pain. How should I use this medicine? Take this medicine by mouth. Swallow it with a full glass of water. Follow the directions on the prescription label. If the medicine upsets your stomach, take the medicine with food or milk. Do not take more than you are told to take. Talk to your delivery room clerk regarding the use of this medicine in children. This medicine is not approved for use in children. What side effects may I notice from receiving this medicine? Side effects that you should report to your doctor or health director of health care marketing as soon as possible: allergic reactions like skin rash, itching or hives, swelling of the face, lips, or tongue breathing problems confusion feeling faint or lightheaded, falls stomach pain yellowing of the eyes or skin Side effects that usually do not require medical attention (report to your doctor or health director of health care marketing if they continue or are bothersome): nausea, vomiting stomach upset What may interact with this medicine? alcohol antihistamines isoniazid medicines for depression, anxiety, or psychotic disturbances medicines for sleep muscle relaxants naltrexone narcotic medicines (opiates) for pain phenobarbital ritonavir tramadol What if I miss a dose? If you miss a dose, take it as soon as you can. If it is almost time for your next dose, take only that dose. Do not take double or extra doses. Where should I keep my medicine? Keep out of the reach of children. This medicine can be abused. Keep your medicine in a safe place to protect it from theft. Do not share this medicine with anyone. Selling or giving away this medicine is dangerous and against the law. Store at room temperature between 15 and 30 degrees C (59 and 86 degrees F). Protect from light. Keep container tightly closed. Throw away any unused medicine after the expiration date. Discard unused medicine and used packaging carefully. Pets and children can be harmed if they find used or lost packages. What should I tell my health care provider before I take this medicine? They need to know if you have any of these conditions: brain tumor Crohn's disease, inflammatory bowel disease, or ulcerative colitis drink more than 3 alcohol-containing drinks per day drug abuse or addiction head injury heart or circulation problems kidney disease or problems going to the bathroom liver disease lung disease, asthma, or breathing problems an unusual or allergic reaction to acetaminophen, hydrocodone, other opioid analgesics, other medicines, foods, dyes, or preservatives or trying to get breast-feeding What should I watch for while using this medicine? Tell your doctor or health director of health care marketing if your pain does not go away, if it gets worse, or if you have new or a different type of pain. You may develop tolerance to the medicine. Tolerance means that you will need a higher dose of the medicine for pain relief. Tolerance is normal and is expected if you take the medicine for a long time. Do not suddenly stop taking your medicine because you may develop a severe reaction. Your body becomes used to the medicine. This does NOT mean you are addicted. Addiction is a behavior related to getting and using a drug for a non-medical reason. If you have pain, you have a medical reason to take pain medicine. Your doctor will tell you how much medicine to take. If your doctor wants you to stop the medicine, the dose will be slowly lowered over time to avoid any side effects. You may get drowsy or dizzy when you first start taking the medicine or change doses. Do not drive, use machinery, or do anything that may be dangerous until you know how the medicine affects you. Stand or sit up slowly. There are different types of narcotic medicines (opiates) for pain. If you take more than one type at the same time, you may have more side effects. Give your health care provider a list of all medicines you use. Your doctor will tell you how much medicine to take. Do not take more medicine than directed. Call emergency for help if you have problems breathing. The medicine will cause constipation. Try to have a bowel movement at least every 2 to 3 days. If you do not have a bowel movement for 3 days, call your doctor or health director of health care marketing. Too much acetaminophen can be very dangerous. Do not take Tylenol (acetaminophen) or medicines that contain acetaminophen with this medicine. Many non-prescription medicines contain acetaminophen. Always read the labels carefully. Ondansetron Oral disintegrating tablet What is this medicine? ONDANSETRON (on SUDHA se vishal) is used to treat nausea and vomiting caused by chemotherapy. It is also used to prevent or treat nausea and vomiting after surgery. How should I use this medicine? These tablets are made to dissolve in the mouth. Do not try to push the tablet through the foil backing. With dry hands, peel away the foil backing and gently remove the tablet. Place the tablet in the mouth and allow it to dissolve, then swallow. While you may take these tablets with water, it is not necessary to do so. Talk to your delivery room clerk regarding the use of this medicine in children. Special care may be needed. What side effects may I notice from receiving this medicine? Side effects that you should report to your doctor or health director of health care marketing as soon as possible: allergic reactions like skin rash, itching or hives, swelling of the face, lips, or tongue breathing problems dizziness fast or irregular heartbeat feeling faint or lightheaded, falls fever and chills swelling of the hands and feet tightness in the chest Side effects that usually do not require medical attention (report to your doctor or health director of health care marketing if they continue or are bothersome): constipation or diarrhea headache What may interact with this medicine? Do not take this medicine with any of the following medications: -apomorphine -cisapride -dofetilide -dronedarone -pimozide -thioridazine -ziprasidone This medicine may also interact with the following medications: -carbamazepine -phenytoin -rifampicin -tramadol -other medicines that prolong the QT interval (cause an abnormal heart rhythm) What if I miss a dose? If you miss a dose, take it as soon as you can. If it is almost time for your next dose, take only that dose. Do not take double or extra doses. Where should I keep my medicine? Keep out of the reach of children. Store between 2 and 30 degrees C (36 and 86 degrees F). Throw away any unused medicine after the expiration date. What should I tell my health care provider before I take this medicine? They need to know if you have any of these conditions: heart disease history of irregular heartbeat liver disease low levels of magnesium or potassium in the blood an unusual or allergic reaction to ondansetron, granisetron, other medicines, foods, dyes, or preservatives or trying to get breast-feeding What should I watch for while using this medicine? Check with your doctor or health director of health care marketing as soon as you can if you have any sign of an allergic reaction. You have been given the following additional information: Abdominal Pain, Unknown Cause, (Female) Hydrocodone Bitartrate, Acetaminophen Oral tablet Ondansetron Oral disintegrating tablet Do not work tomorrow. (Electronically signed by Martin Keller Dr. 07/03/2016 22:16)
--- NOTE | 2016-07-03 22:17 | ED MAR SUMMARY ---
..... Medication Administration Record [facility] [address] [place] [address] Patient: ANDREWS ALMONTE Visit ID: [id number] 20y, F Weight: 96.1 kg Height/Length: 66 in BMI: 34.2 ALLERGIES: Naproxen Start 16:25 07/03/2016 Praveena Conrad R.N., Stop 17:21 07/03/2016 Praveena Conrad R.N. Medication Administered: IV NS (SALINE), Dose: IV Fluids, Bolus: 1000 mL wide open, Dispensed: 1000 mL bag, Site: #1. Medication Ordered: IV NS : initial bolus none -, then 1000 mL/hr for X1 (NOW). Given 16:07/03/2016 Praveena Conrad R.N. Medication Administered: TORADOL [IVP], Dose: 30 mg IVP over 2 minute(s), Site: #1. Medication Ordered: Toradol IV 30 mg (NOW). Given 16:07/03/2016 Praveena Conrad R.N. Medication Administered: ZOFRAN [IVP] (ONDANSETRON HCL), Dose: 4 mg IVP over 2 minute(s), Site: #1. Medication Ordered: Zofran IV 4 mg (NOW).
--- NOTE | 2016-07-03 22:17 | ED MED RECONCILIATION SUMMARY ---
Patient: ANDREWS ALMONTE Medication Reconciliation Report [facility] VisitID: [id number] [address] [place] [address] 20y, F Registration Date/Time: 07/03/2016 Weight: 96.1 kg Height/Length: 66 in. BMI: 34.2 ALLERGIES: Naproxen The patient's Home Medications are listed below: CONTINUE TAKING THE FOLLOWING MEDICATIONS: Vicodin The source(s) of the original Home Medication information: Not obtained. The following Medications were given to the patient in the Emergency Department: IV NS IV Fluids bolus 1000 mL wide open, administered: 07/03/2016 4:25:00 PM Zofran [IVP] IVP 4 mg, administered: 07/03/2016 4:26:00 PM Toradol [IVP] IVP 30 mg, administered: 07/03/2016 4:26:00 PM The following Medications were prescribed to the patient: Hydrocodone/APAP 5mg / 325mg: take 1 orally every 6 hours as needed for pain. Dispense fifteen (15). No refill. -- Martin Keller Dr. Zofran (orally disintegrating tablets) 4 mg: take 1 orally every 6 hours as needed for nausea and vomiting. Dispense ten (10). Substitution is permissible. -- Martin Kleler Dr.
== END 2016-07-03 19:49 | disposition home or self-care (01) ==
LOC: ED SRH 15:58
DX: R10.31 Right lower quadrant pain (principal); K21.9 Gastro-esophageal reflux disease without esophagitis; F17.210 Nicotine dependence, cigarettes, uncomplicated; Z88.8 Allergy status to other drugs, medicaments and biological substances
CPT/HCPCS: 90004; 90100; 93070; 95059